=== PATIENT | female | born 1955 | race Caucasian/White ===

== ENCOUNTER 2017-06-21 09:08 | Day surgery (SDC) | payer MEDICAID ==
[~2017-06-21 09:08] MED LIST: Lactated Ringers 1,000 ML IV SCH; Propofol 200 MG/20 ML SDV ONE; Sodium Chloride 0.9% 5 ML Syringe FLUSH PRN
[2017-06-21] MEDS ORDERED: EPINEPHrine 1:10,000 1 MG/10 ML Syringe ONE (09:24)
[2017-06-21] MEDS ORDERED: Propofol 200 MG/20 ML SDV IV ONE (10:17)
[2017-06-21] MEDS ORDERED: Glycopyrrolate 0.2 MG/ML 5 ML MDV IV ONE (10:17)
[2017-06-21] MEDS ORDERED: Succinylcholine 200 MG/10 ML MDV IV ONE (10:17)
[2017-06-21] MEDS ORDERED: Neostigmine Methylsulfate 10 MG/10 ML MDV IV ONE (10:17)
[2017-06-21] MEDS ORDERED: fentaNYL 100 MCG/2 ML SDV IV ONE (10:17)
[2017-06-21] MEDS ORDERED: Rocuronium 50 MG/5 ML Vial IV ONE (10:17)
[2017-06-21] MEDS ORDERED: ceFAZolin 1 GM Vial IV ONE (10:17)
[2017-06-21] MEDS ORDERED: Atropine 0.4 MG/ML SDV IV ONE (10:17)
[2017-06-21 10:23] LABS: CHLORIDE,CL 108 mmol/L (98-115); SODIUM,NA 143 mmol/L (136-145)
--- NOTE | 2017-06-21 12:13 | PCM.OPNOTE ---
- General Post-Op/Procedure Note Date of Surgery/Procedure: 06/21/17 Operative Procedure(s): Colonoscopy Findings: normal colonoscopy. A few diverticula were seen in the sigmoid colon. No evidence of obstruction, polyps, bleeding lesions, AV malformations or angiodysplasia. Pre Op Diagnosis: Hemoccult-positive stools. Post-Op Diagnosis: Same Anesthesia Technique: MAC Primary Surgeon: Richard Gillis Complications: None Condition: Good Free Text/Narrative:: INFORMED CONSENT: Patient is here today for elective colonoscopy. All aspects of this procedure have been discussed with the patient. All possible complications also, including possibility of perforation, infection, pain, bleeding and unknown complications. In the event of perforation patient may need to have abdominal exploration, colon resection, colostomy and even was discussed. Anesthetic complications were handled by anesthesia department. The patient understands fully well. Patient did not have any further questions for me at the end of my interview. The patient wishes for me to proceed. PREOPERATIVE DIAGNOSIS/INDICATIONS: [Hemoccult-positive stools] POSTOPERATIVE DIAGNOSIS: [multiple diverticuli of the sigmoid colon otherwise negative colonoscopy] INSTRUMENT USED: Olympus videocolonoscope. ASA CLASSIFICATION: [2] ANESTHESIA: Continuous EKG, oximetry and intermittent blood pressure and respiratory monitoring were performed throughout the procedure. IV Versed and Fentanyl were administered. PROCEDURE PERFORMED: Colonoscopy POSITIONS OF PATIENT: Left lateral. RECTUM: Normal. SIGMOID COLON: multiple diverticuli were seen without complication.. DESCENDING COLON: Normal. SPLENIC FLEXURE: Normal. TRANSVERSE COLON: Normal. HEPATIC FLEXURE: Normal. ASCENDING COLON: Normal. CECUM: Normal. ILEOCECAL VALVE: Normal. BIOPSY: None. TOLERANCE: Excellent. COMPLICATIONS: None.
[2017-06-21 14:47] VITALS: BP 135/60
== END 2017-06-21 12:48 ==
LOC: KA.SDS 09:08
PROVIDERS: ATTEND Family Medicine
DX: K57.30 Diverticulosis of large intestine without perforation or abscess without bleeding (principal); C34.90 Malignant neoplasm of unspecified part of unspecified bronchus or lung; D50.9 Iron deficiency anemia, unspecified; I11.0 Hypertensive heart disease with heart failure; I50.22 Chronic systolic (congestive) heart failure; I69.359 Hemiplegia and hemiparesis following cerebral infarction affecting unspecified side; K21.9 Gastro-esophageal reflux disease without esophagitis; F32.9 Major depressive disorder, single episode, unspecified; Z79.02 Long term (current) use of antithrombotics/antiplatelets; Z79.82 Long term (current) use of aspirin; Z79.899 Other long term (current) drug therapy; Z88.5 Allergy status to narcotic agent; Z88.8 Allergy status to other drugs, medicaments and biological substances; Z91.041 Radiographic dye allergy status
CPT/HCPCS: 36415; 45378; 80048; 85025; J0330; J0461; J0690; J2704; J2710; J3010; J7120; J3490

== ENCOUNTER 2019-02-06 11:37 | Inpatient (IN) | payer MEDICAID ==
[2019-02-06] MEDS ORDERED: Furosemide 40 MG/4 ML VIAL IVPUSH SCH ×2 (12:45→17:00)
[2019-02-06] MEDS ORDERED: EPINEPHrine 1:10,000 1 MG/10 ML Syringe IVPUSH PRN (13:15)
[2019-02-06] MEDS ORDERED: Lidocaine 2% 100 MG/5 ML Syringe IVPUSH PRN (13:15)
[2019-02-06] MEDS ORDERED: Atropine 0.1 MG/ML 10 ML Syringe IVPUSH PRN (13:15)
[2019-02-06] MEDS ORDERED: Nitroglycerin 0.4 MG Tab.SL SL PRN (13:15)
[2019-02-06] MEDS ORDERED: guaiFENesin 100 MG/5 ML Soln 5 ML UD Cup PO PRN (16:34)
[2019-02-06] MEDS ORDERED: Acetaminophen 325 MG Tab PO PRN (16:34)
[2019-02-06] MEDS ORDERED: Albuterol 0.083% 2.5 MG/3 ML Neb Soln NEB PRN (16:34)
[2019-02-06] MEDS ORDERED: Nystatin Topical Powder 15 GM Bottle TOP PRN (16:34)
[2019-02-06] MEDS ORDERED: Albuterol/Ipratropium 3.0-0.5 MG/3 ML Neb Soln NEB SCH (17:00)
[2019-02-06] MEDS ORDERED: Acetaminophen 325 MG Tab PO SCH (18:00)
[2019-02-06] MEDS ORDERED: Metoprolol Tartrate 25 MG Tab PO SCH (18:00)
[2019-02-06] MEDS ORDERED: Insulin Aspart 100 Units/ML 3 ML Pen SUBCUT SCH (18:00)
[2019-02-06 18:04] VITALS: BP 138/75
[2019-02-06] MEDS ORDERED: Ascorbic Acid 500 MG Tab PO SCH (20:00)
[2019-02-06] MEDS ORDERED: Polyvinyl Alcohol 1.4% Ophth Soln 15 ML Bottle EYEBOTH SCH (20:00)
[2019-02-06] MEDS ORDERED: Non-Formulary Medication 1 Each (Ferrous Gluconate [Ferrous Gluconate] 324 MG) PO SCH (20:00)
--- NOTE | 2019-02-06 20:00 | CR ---
[id number] RAD/RAD Chest PA And Lateral EXAM: FRONTAL AND LATERAL CHEST INDICATION: Shortness of breath. COMPARISON: March 08, 2012. DISCUSSION: Moderate right and small left pleural effusions. Cardiomegaly with mild central vascular congestion. Possible right perihilar infiltrates. Unchanged left apical scarring and masslike opacification. Prior sternotomy. IMPRESSION: 1. Moderate and small left pleural effusions. 2. Cardiomegaly with mild central vascular congestion. 3. Possible right perihilar infiltrates. Andrew Castillo MD 02/06/19 1959 Thank you for allowing us to participate in the care of your patient.
[2019-02-06 20:34] LABS: O2 DELIVERY DEVICE NASAL CANNULA
[2019-02-06 20:36] LABS: BASE EXCESS ARTERIAL 26 mmol/L (-2-3); BICARBONATE,ARTERIAL 50.1 mmol/L (22-26); O2 FLOW RATE 4 L/min; O2 SATURATION ARTERIAL 97 % (95-98)
[2019-02-06 20:38] LABS: PCO2 ARTERIAL 74 mmHG (35-45); PO2 ARTERIAL 95 mmHG (80-105)
[2019-02-06] MEDS ORDERED: OLANZapine 5 MG Tab PO SCH (21:00)
[2019-02-07] MEDS ORDERED: Folic Acid 1 MG Tab PO SCH (09:00)
[2019-02-07] MEDS ORDERED: Non-Formulary Medication 1 Each (Formoterol Fumarate [Perforomist] 2 ML) INH SCH (09:00)
[2019-02-07] MEDS ORDERED: FLUoxetine 10 MG Cap PO SCH (09:00)
[2019-02-07] MEDS ORDERED: Cholecalciferol (Vitamin D3) 1,000 Unit Tab PO SCH (09:00)
[2019-02-07] MEDS ORDERED: Pantoprazole 40 MG Vial IV SCH (09:00)
[2019-02-07] MEDS ORDERED: Aspirin 81 MG Tab.Chew PO SCH (09:00)
[2019-02-07] MEDS ORDERED: Multivitamins with Minerals/Iron/Folic Acid/Lycopene Tab PO SCH (09:00)
[2019-02-07] MEDS ORDERED: Clopidogrel 75 MG Tab PO SCH (09:00)
[2019-02-07] MEDS ORDERED: FLUOXETINE 40 MG PO SCH (09:00)
[2019-02-07] MEDS ORDERED: CIT AC PO SCH (12:00)
[2019-02-07] MEDS ORDERED: POTASSIUM BICARBONATE PO SCH (12:00)
--- NOTE | 2019-02-07 14:35 | DISCH ---
ADMITTING DIAGNOSIS: Right pleural effusion with shortness of breath along with edema and fluid overload secondary to congestive heart failure. DISCHARGE DIAGNOSIS: Aspiration pneumonia to right upper lung along with right pleural effusion and exacerbation of congestive heart failure. BRIEF HISTORY AND ESSENTIAL PHYSICAL FINDINGS: This is a 63-year-old female patient who does resides in the [facility] in [place], [place]. Over the weekend, the patient was short of breath. The on-call provider was called. Her Lasix was increased from 20 mg once daily to 20 mg twice a day. She was also given some DuoNeb treatments. Nursing staff had reported that her oxygen sats would drop down into the 70s when she was on room air. She had difficulty breathing, was short of breath when she was lying down flat. She was brought to the clinic on Wednesday morning for followup after weekend. Chest x-ray at that time had revealed pleural effusion on the right had got much larger from the previous x- ray that was taken about a month ago. 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 She did have a lobectomy at that time to remove the cancer. The patient's brain natriuretic peptide was elevated at 1110. CBC and CMP were unremarkable at that time. Except for sodium elevated at 148. The patient was tachypneic with increased respiratory rate and short of breath on exam. She was admitted to the hospital for right pleural effusion, to diuresis the patient. She was given 40 mg IV Lasix upon admission to the hospital. The patient was eating supper at the hospital when she was noted to cough and sputter. Nursing staff had reported that she had a hard time breathing after she had coughed and choked on some food. Her oxygen saturations had dropped into the 70s. She was put on 6 L high-flow nasal cannula. Her O2 sats did increase after a long coughing spell. Repeat chest x- ray at that time revealed a new right upper lobe perihilar infiltrate per Radiology that was not on the previous x-ray earlier that morning. ABGs were obtained, which showed pH at 7.44, pCO2 at 74, PO2 at 95, bicarb at 50, oxygen saturation was 97%. Base excess was 26. This was done on 4 L nasal cannula. The patient also had troponin that was negative at 0.06 upon admission. CK-MB was also negative at 1.2. SIGNIFICANT LABS XRAYS AND CONSULTATION FINDINGS: The patient's lab work that was obtained in the clinic. Her CBC was unremarkable. Her CMP was unremarkable except for her sodium was slightly elevated at 148. Chest x-ray did reveal a large right pleural effusion along with a left upper lobectomy. IMPRESSION AND PLAN: 1. Large right pleural effusion. The patient has had a thoracentesis in the past, having this drained in the past, has been increasing in size when compared to previous x-ray about a month ago, was much larger. She is more short of breath even with diuresis of IV Lasix. She did receive 2 doses of IV Lasix while in the hospital 40 mg each dose. 2. Aspiration pneumonia. Chest x-ray did reveal a new perihilar right upper lobe infiltrate that was new from previous x-ray earlier this morning. OVERALL PLAN: The patient's respiratory rate had increased. Her respiratory drive had increased. More difficulty to keep her oxygen saturations above 90%. ABGs did show a pCO2 elevated at 74. The patient continued to be tachypnea. Lungs sounds are very coarse throughout lung glez. The patient will be transferred to [facility] in [place] to the ICU. Report was called to Dr. Torres, ornamental ironworking supervisor, at ICU in [place]. She will be transferred tonight per ambulance. The patient's son is aware of transfer. The patient is in agreement of plan of care. She does wish to be a full code and to be intubated if necessary. /[id number]/MODL MTDD
== END 2019-02-06 22:10 | DRG 291 ==
LOC: KA.MS 11:37
PROVIDERS: ADMIT Physician Assistant; ATTEND Family Medicine
DX: I11.0 Hypertensive heart disease with heart failure (principal); I50.23 Acute on chronic systolic (congestive) heart failure; J69.0 Pneumonitis due to inhalation of food and vomit; E87.0 Hyperosmolality and hypernatremia; I69.351 Hemiplegia and hemiparesis following cerebral infarction affecting right dominant side; Z85.118 Personal history of other malignant neoplasm of bronchus and lung; Z91.041 Radiographic dye allergy status; Z88.5 Allergy status to narcotic agent; K21.9 Gastro-esophageal reflux disease without esophagitis; F32.9 Major depressive disorder, single episode, unspecified
CPT/HCPCS: 36600; 71046; 82553; 82803; 84484; A9270-GY; J1940; J7620-GY

== ENCOUNTER 2019-07-04 07:34 | Day surgery (SDC) | payer MEDICAID ==
[~2019-07-04 07:34] MED LIST changes: +Ciprofloxacin 0.3% Ophth Soln 2.5 ML Bottle EYELF SCH; -Propofol 200 MG/20 ML SDV ONE; +Sodium Chloride 0.9% 10 ML Syringe FLUSH PRN; -Sodium Chloride 0.9% 5 ML Syringe FLUSH PRN
[2019-07-04] MEDS: Cyclopentolate 1% Opth Soln 2 ML Bottle EYELF SCH ×3 (07:51→08:18)
[2019-07-04] MEDS: Phenylephrine 10% Ophth Soln 5 ML Bot EYELF SCH ×3 (07:56→08:28)
[2019-07-04] MEDS ORDERED: Albuterol/Ipratropium 3.0-0.5 MG/3 ML Neb Soln NEB SCH (08:45)
[2019-07-04] MEDS ORDERED: Balanced Salt Solution Ophth Irrig 15 ML Bottle EYELF ONE (09:30)
[2019-07-04] MEDS ORDERED: Water For Irrigation,Sterile 1,500 ML Container IRR ONE (09:30)
[2019-07-04] MEDS ORDERED: Balanced Salt Solution Plus Ophth Irrig 500 ML Bottle IOCULAR ONE (09:31)
[2019-07-04] MEDS ORDERED: EPINEPHrine 1 MG/1 ML Amp ONE (09:31)
[2019-07-04] MEDS ORDERED: Carbachol 0.01% Intraocular 1.5 ML Vial EYELF ONE (09:31)
[2019-07-04] MEDS ORDERED: Lidocaine 1% 10 ML MDV INJECT ONE (09:32)
[2019-07-04] MEDS ORDERED: Lidocaine 2% with EPINEPHrine 1:100,000 20 ML MDV INJECT ONE (09:32)
[2019-07-04] MEDS ORDERED: Dexamethasone/Neomycin/Polymyxin B Ophth Oint 3.5 GM Tube EYELF ONE (09:32)
[2019-07-04] MEDS ORDERED: Hyaluronate Sodium 1% 0.85 ML Syringe IOCULAR ONE (09:33)
[2019-07-04] MEDS ORDERED: Tetracaine HCl/PF 0.5% 4 ML Bottle EYEBOTH ONE (09:33)
[2019-07-04 10:36] VITALS: BP 112/56
--- NOTE | 2019-07-04 11:47 | OR ---
DATE OF SURGERY: 07/04/2019 SURGEON: Blayne Krishnan MD PREOPERATIVE DIAGNOSIS: Cataract, left eye. POSTOPERATIVE DIAGNOSIS: Cataract, left eye. OPERATION PERFORMED: Phacoemulsification with posterior chamber lens insertion, left eye. HISTORY: The patient presents at this time with increasing amount of difficulty seeing television and also difficulty seeing to read. The left eye has a vision of 20/50 -2. The left lens has a 2 to 3+ nuclear sclerosis with 2+ cortical change and 1 to 2+ posterior subcapsular change. This eye has a combined cataract and a cataract of aging. FINDINGS: The patient was taken to the operating room where appropriate anesthesia, sedation and monitoring were provided. A retrobulbar block was given on the left side. The eye was massaged and was found to be appropriately soft. The eye and eyelids were then prepped and draped in the usual sterile manner. A lid speculum was placed. A micro sharp blade was used to enter the anterior chamber inside the limbus inferior-temporally. Xylocaine was irrigated into the eye at this site. Healon was irrigated into the eye through this site. Then using a 2.85 mm corneal blade an entry was made into the anterior chamber just inside the limbus temporally. Healon was again irrigated into the eye. Then using a cystitome, the anterior capsulorrhexis was created. The lens nucleus was hydrodissected using a 27 gauge cannula and balanced salt solution. The phacoemulsification unit was introduced through the temporal site and the Wai spatula through the inferior temporal site. In so doing, the lens nucleus was phacoemulsified. The cortical fragments of the lens were removed using the irrigation aspiration unit. The posterior capsule was polished. Healon was irrigated into the eye. The posterior chamber lens was inserted and rotated into position inside the capsular bag. The Healon was irrigated out of the eye. Miostat was irrigated into the eye and the pupil rounded nicely. A single interrupted 10-0 Nylon suture was placed through the temporal corneal incision site. Balanced salt solution was irrigated into the eye. The wound was tested and found to be tight. Maxitrol ointment was placed into the patient's left eye. The eyelids were closed and an eye patch and childers shield were placed. The patient left the operating room in good condition. /[id number]/MODL
== END 2019-07-04 10:45 ==
LOC: KA.SDS 07:34
PROVIDERS: ATTEND Ophthalmology
DX: H25.812 Combined forms of age-related cataract, left eye (principal); I11.0 Hypertensive heart disease with heart failure; I50.22 Chronic systolic (congestive) heart failure; D50.9 Iron deficiency anemia, unspecified; K21.9 Gastro-esophageal reflux disease without esophagitis; E55.9 Vitamin D deficiency, unspecified; I69.354 Hemiplegia and hemiparesis following cerebral infarction affecting left non-dominant side; F32.9 Major depressive disorder, single episode, unspecified; Z79.899 Other long term (current) drug therapy; Z79.82 Long term (current) use of aspirin; Z79.02 Long term (current) use of antithrombotics/antiplatelets; Z91.041 Radiographic dye allergy status
CPT/HCPCS: A9270-GY; J0171; J2001; J7120; J7620-GY; V2632

== ENCOUNTER 2019-07-21 19:35 | Emergency (ER) | payer MEDICAID ==
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
[2019-07-21] MEDS ORDERED: Sodium Chloride 0.9% 10 ML Syringe FLUSH PRN (20:00)
[2019-07-21 20:28] LABS: ANION GAP 15.1 mmol/L (5-15); CHLORIDE,CL 103 mmol/L (98-115); SODIUM,NA 142 mmol/L (136-145)
[2019-07-21] MEDS ORDERED: Ciprofloxacin 500 MG Tab PO ONE (22:53)
[2019-07-21] MEDS ORDERED: metroNIDAZOLE 500 MG Tab PO ONE (22:55)
[2019-07-22 02:52] VITALS: BP 114/50; PULSE 78
== END 2019-07-21 23:20 ==
LOC: KA.ED 19:35
DX: K57.32 Diverticulitis of large intestine without perforation or abscess without bleeding (principal); I10 Essential (primary) hypertension; K21.9 Gastro-esophageal reflux disease without esophagitis; F41.9 Anxiety disorder, unspecified; F32.9 Major depressive disorder, single episode, unspecified; J44.9 Chronic obstructive pulmonary disease, unspecified; Z79.51 Long term (current) use of inhaled steroids; Z88.8 Allergy status to other drugs, medicaments and biological substances; Z88.5 Allergy status to narcotic agent; Z79.82 Long term (current) use of aspirin; Z90.710 Acquired absence of both cervix and uterus; Z79.899 Other long term (current) drug therapy
CPT/HCPCS: 51701; 74022; 74176; 80053; 81001; 82150; 83690; 85025; 99285-25; A9270-GY

== ENCOUNTER 2019-08-01 07:31 | Day surgery (SDC) | payer MEDICAID ==
[~2019-08-01 07:31] MED LIST changes: -Ciprofloxacin 0.3% Ophth Soln 2.5 ML Bottle EYELF SCH; +Gatifloxacin 0.5% Ophth Soln 2.5 ML Bot EYERT SCH
[2019-08-01] MEDS ORDERED: Ciprofloxacin 0.3% Ophth Soln 2.5 ML Bottle EYERT ONE (07:42)
[2019-08-01] MEDS: Cyclopentolate 1% Opth Soln 2 ML Bottle EYERT SCH ×3 (07:48→08:19)
[2019-08-01] MEDS: Phenylephrine 10% Ophth Soln 5 ML Bot EYERT SCH ×3 (07:55→08:24)
[2019-08-01] MEDS ORDERED: Water For Irrigation,Sterile 1,500 ML Container IRR ONE (09:34)
[2019-08-01] MEDS ORDERED: Balanced Salt Solution Ophth Irrig 15 ML Bottle EYERT ONE (09:34)
[2019-08-01] MEDS ORDERED: Carbachol 0.01% Intraocular 1.5 ML Vial EYERT ONE (09:35)
[2019-08-01] MEDS ORDERED: EPINEPHrine 1 MG/1 ML Amp ONE (09:35)
[2019-08-01] MEDS ORDERED: Balanced Salt Solution Plus Ophth Irrig 500 ML Bottle IOCULAR ONE (09:35)
[2019-08-01] MEDS ORDERED: Lidocaine 2% with EPINEPHrine 1:100,000 20 ML MDV INJECT ONE (09:35)
[2019-08-01] MEDS ORDERED: Dexamethasone/Neomycin/Polymyxin B Ophth Oint 3.5 GM Tube EYERT ONE (09:35)
[2019-08-01] MEDS ORDERED: Lidocaine 1% 10 ML MDV INJECT ONE (09:36)
[2019-08-01] MEDS ORDERED: Hyaluronate Sodium 1% 0.85 ML Syringe IOCULAR ONE (09:36)
[2019-08-01] MEDS ORDERED: Tetracaine HCl/PF 0.5% 4 ML Bottle EYEBOTH ONE (09:37)
[2019-08-01 10:03] VITALS: PULSE 62
[2019-08-01 10:27] VITALS: BP 112/55
--- NOTE | 2019-08-01 10:52 | OR ---
DATE OF SURGERY: 08/01/2019 SURGEON: Blayne Krishnan MD PREOPERATIVE DIAGNOSIS: Cataract, right eye. POSTOPERATIVE DIAGNOSIS: Cataract, right eye. OPERATION PERFORMED: Phacoemulsification with posterior chamber lens insertion, right eye. HISTORY: The patient presents at this time with an increasing amount of difficulty seeing print on television. The right eye has a vision of 20/70. The right lens has 2 to 3+ nuclear sclerosis with 2+ cortical change and 1 to 2+ posterior subcapsular change. This eye has a combined cataract and a cataract of aging. FINDINGS: The patient was taken to the operating room where appropriate anesthesia, sedation and monitoring were provided. A retrobulbar block was given on the right side. The eye was massaged and was found to be appropriately soft. The eye and eyelids were then prepped and draped in the usual sterile manner. A lid speculum was placed. A micro sharp blade was used to enter the anterior chamber inside the limbus superior-temporally. Xylocaine was irrigated into the eye at this site. Healon was irrigated into the eye through this site. Then using a 2.85 mm corneal blade an entry was made into the anterior chamber just inside the limbus temporally. Healon was again irrigated into the eye. Then using a cystitome, the anterior capsulorrhexis was created. The lens nucleus was hydrodissected using a 27 gauge cannula and balanced salt solution. The phacoemulsification unit was introduced through the temporal site and the Wai spatula through the superior temporal site. In so doing, the lens nucleus was phacoemulsified. The cortical fragments of the lens were removed using the irrigation aspiration unit. The posterior capsule was polished. Healon was irrigated into the eye. The posterior chamber lens was inserted and rotated into position inside the capsular bag. The Healon was irrigated out of the eye. Miostat was irrigated into the eye and the pupil rounded nicely. A single interrupted 10-0 Nylon suture was placed through the temporal corneal incision site. Balanced salt solution was irrigated into the eye. The wound was tested and found to be tight. Maxitrol ointment was placed into the patient's right eye. The eyelids were closed and an eye patch and childers shield were placed. The patient left the operating room in good condition. /[id number]/MODL
== END 2019-08-01 10:34 ==
LOC: KA.SDS 07:31
PROVIDERS: ATTEND Ophthalmology
DX: H25.811 Combined forms of age-related cataract, right eye (principal); I11.0 Hypertensive heart disease with heart failure; I50.22 Chronic systolic (congestive) heart failure; F33.9 Major depressive disorder, recurrent, unspecified; F41.9 Anxiety disorder, unspecified; K21.9 Gastro-esophageal reflux disease without esophagitis; Z79.899 Other long term (current) drug therapy; Z79.82 Long term (current) use of aspirin; Z79.02 Long term (current) use of antithrombotics/antiplatelets; Z91.041 Radiographic dye allergy status; Z88.5 Allergy status to narcotic agent; Z88.8 Allergy status to other drugs, medicaments and biological substances
CPT/HCPCS: A9270-GY; J0171; J2001; J7120; V2632

== ENCOUNTER 2021-03-26 04:30 | Emergency (ER) | payer MEDICAID ==
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
[2021-03-26] MEDS ORDERED: Sodium Chloride 0.9% 10 ML Syringe FLUSH PRN (05:06)
[2021-03-26] MEDS: Albuterol/Ipratropium 3.0-0.5 MG/3 ML Neb Soln NEB ONE ×2 (05:13→05:55)
[2021-03-26] MEDS: Sodium Chloride 0.9% 1,000 ML IV ONE (05:15)
[2021-03-26 05:50] LABS: ANION GAP 15.1 mmol/L (5-15); CHLORIDE,CL 100 mmol/L (98-107); SODIUM,NA 139 mmol/L (136-145)
[2021-03-26] MEDS: cefTRIAXone 2 GM Vial IVPUSH ONE (05:55)
[2021-03-26] MEDS: Albuterol/Ipratropium 3.0-0.5 MG/3 ML Neb Soln ONE ×2 (06:14→06:15)
[2021-03-26] MEDS: Acetaminophen 500 MG Tab PO ONE (06:34)
[2021-03-26] MEDS: Sodium Chloride 0.9% 1,000 ML IV SCH (06:35)
[2021-03-26] MEDS: Sodium Chloride 0.9% 1,000 ML ONE (06:52)
[2021-03-26 07:32] VITALS: BP 129/64; PULSE 131
--- NOTE | 2021-03-26 08:27 | CT ---
[id number] CT/CT Chest WO IV EXAM: CT Chest WO IV CLINICAL DATA: SHORTNESS OF BREATH COMPARISON: 11/25/2015. FINDINGS: LUNGS: Dense consolidation of the lung apices bilaterally. Additionally there are areas of airspace consolidation within the right lower lobe. Volume loss with apparent postsurgical changes at the left lung apex. 2.3 cm nodule within the right middle lobe (series 3 image 48). No endobronchial lesions. HEART AND GREAT VESSELS: The heart is enlarged. Coronary artery disease. Atherosclerotic calcifications of the aorta and its branches. MEDIASTINUM AND LYMPHATICS: No mediastinal or hilar lymphadenopathy. Central venous catheter with tip terminating at the superior vena cava. UPPER ABDOMINAL ORGANS: Nonobstructing left renal calculi. Partially visualized nodular density adjacent to the right hepatic lobe. BONES: Scattered changes of spondylosis in the spine. Minimally displaced fractures of the right eighth, ninth and 10th ribs.. IMPRESSION: 1. 2.3 cm spiculated right middle lobe nodule concerning for neoplastic process. Further evaluation with PET CT could be considered if indicated. 2. Dense consolidation at the lung apices bilaterally. Findings could be infectious/inflammatory in nature. Neoplasm is not excluded. 3. Minimally displaced fractures of the right eighth, ninth and 10th ribs. Matt Shen DO 03/26/21 0826 Thank you for allowing us to participate in the care of your patient.
--- NOTE | 2021-03-26 08:31 | CR ---
[id number] RAD/RAD Chest PA or AP 1V EXAM: RAD Chest PA or AP 1V INDICATION: SHORTNESS OF BREATH COMPARISON: July 21, 2019. DISCUSSION: Median sternotomy wires. The cardiomediastinal silhouette is stable in size. Right chest wall Mediport with tip overlying the upper portion the superior vena cava. Persistent opacification of the left lung apex. Masslike density overlying the right lung apex is new when compared to prior. Pulmonary hyperinflation. Fractures of ribs 8, 9 and 10 on the right. IMPRESSION: As above. Matt Shen DO 03/26/21 0829 Thank you for allowing us to participate in the care of your patient.
== END 2021-03-26 07:49 ==
LOC: KA.ED 04:30
DX: J18.9 Pneumonia, unspecified organism (principal); C34.90 Malignant neoplasm of unspecified part of unspecified bronchus or lung; R79.89 Other specified abnormal findings of blood chemistry; I11.0 Hypertensive heart disease with heart failure; I50.9 Heart failure, unspecified; J44.9 Chronic obstructive pulmonary disease, unspecified; K21.9 Gastro-esophageal reflux disease without esophagitis; Z79.82 Long term (current) use of aspirin; Z79.02 Long term (current) use of antithrombotics/antiplatelets; Z88.5 Allergy status to narcotic agent; Z91.041 Radiographic dye allergy status; Z91.09 Other allergy status, other than to drugs and biological substances; Z20.822 Contact with and (suspected) exposure to COVID-19
CPT/HCPCS: 71045; 71250; 80053; 82550; 82553; 83605; 83880; 84484; 85025; 85379; 85610; 85730; 93005; 94640; 96374; 99284; 99285-25; A9270-GY; J0696; J7030; J7620-GY; U0002

== ENCOUNTER 2021-04-10 19:04 | Inpatient (IN) | payer MEDICAID ==
[2021-04-10] MEDS ORDERED: Albuterol/Ipratropium 3.0-0.5 MG/3 ML Neb Soln NEB ONE ×2 (19:08→19:58)
[2021-04-10] MEDS ORDERED: Sodium Chloride 0.9% 1,000 ML IV ONE (19:08)
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
--- NOTE | 2021-04-10 19:34 | CR ---
[id number] RAD/RAD Chest Portable EXAM: RAD Chest Portable INDICATION: SOB COMPARISON: CT from March 26, 2021. DISCUSSION/IMPRESSION: Chronic opacification in both lung apices, similar to the prior examination. New area of opacification the left lung base not seen previously. Finding is nonspecific could represent pneumonia or atelectasis. 24 mm nodular opacity in the right midlung. This correlates with findings on recent CT. Cardiomediastinal silhouette is unchanged in size and contour compared to the prior examination. Chemo Hdez MD 04/10/21 193 Thank you for allowing us to participate in the care of your patient.
[2021-04-10] MEDS ORDERED: Cefepime 1 GM Vial IVPUSH ONE (19:38)
[2021-04-10 20:02] LABS: ANION GAP 13.3 mmol/L (5-15); CHLORIDE,CL 103 mmol/L (98-107); SODIUM,NA 143 mmol/L (136-145)
[2021-04-10] MEDS ORDERED: Nystatin Topical Powder 15 GM Bottle TOP PRN (21:46)
[2021-04-11] MEDS ORDERED: Cefepime 2 GM in Sodium Chloride 0.9% 50 ML IV SCH (05:00)
[2021-04-11] MEDS: Albuterol 0.083% 2.5 MG/3 ML Neb Soln NEB SCH ×2 (06:20→07:03)
[2021-04-11] MEDS ORDERED: Ipratropium 0.02% 0.5 MG/2.5 ML Neb Soln INH SCH (07:00)
[2021-04-11] MEDS ORDERED: Acetaminophen 325 MG Tab PO PRN (07:31)
[2021-04-11] MEDS: Pantoprazole 40 MG Tab.CR PO SCH (07:42)
[2021-04-11] MEDS: Megestrol Susp 40 MG/ML 10 ML UD Cup PO SCH (08:11)
[2021-04-11] MEDS: Acetaminophen 325 MG Tab PO SCH ×3 (08:11→20:41)
[2021-04-11] MEDS: predniSONE 20 MG Tab PO SCH (08:12)
[2021-04-11] MEDS: Ascorbic Acid 500 MG Tab PO SCH ×3 (08:12→20:41)
[2021-04-11] MEDS: Furosemide 40 MG Tab PO SCH (08:12)
[2021-04-11] MEDS: Cholecalciferol (Vitamin D3) 25 MCG Tab PO SCH (08:12)
[2021-04-11] MEDS: Metoprolol Succinate 25 MG Tab.ER PO SCH (08:13)
[2021-04-11] MEDS: Folic Acid 1 MG Tab PO SCH (08:13)
[2021-04-11] MEDS: Aspirin 81 MG Tab.Chew PO SCH (08:13)
[2021-04-11] MEDS: Clopidogrel 75 MG Tab PO SCH (08:13)
[2021-04-11 08:40] LABS: ANION GAP 15.1 mmol/L (5-15); CHLORIDE,CL 104 mmol/L (98-107); SODIUM,NA 144 mmol/L (136-145)
[2021-04-11] MEDS: Sodium Chloride 0.9% 100 ML IV SCH ×2 (09:00→13:11)
[2021-04-11] MEDS: Multivitamins with Minerals/Iron/Folic Acid/Lycopene Tab PO SCH (09:02)
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
[2021-04-11] MEDS ORDERED: Carboxymethylcellulose Sodium 0.5% Ophth Soln 15 ML Bottle EYEBOTH PRN (09:58)
[2021-04-11] MEDS: [UNRECOGNIZED DRUG - REMARK] PO SCH ×2 (10:22→20:42)
[2021-04-11] MEDS: FLUoxetine 10 MG Cap PO SCH (12:06)
[2021-04-11] MEDS: Albuterol/Ipratropium 3.0-0.5 MG/3 ML Neb Soln NEB SCH ×3 (12:37→23:15)
[2021-04-11] MEDS: Cefepime 2 GM in Sodium Chloride 0.9% 50 ML IV SCH ×2 (13:12→20:29)
[2021-04-11] MEDS ORDERED: Magnesium Hydroxide 400 MG/5 ML Susp 30 ML Cup PO PRN (20:39)
[2021-04-11] MEDS: traZODone 50 MG Tab PO SCH (20:41)
[2021-04-11] MEDS: Ferrous Sulfate 325 MG Tab PO SCH (20:41)
[2021-04-11] MEDS: LETROZOLE 2.5 MG PO SCH (20:43)
[2021-04-11] MEDS: guaiFENesin 100 MG/5 ML Soln 5 ML UD Cup PO PRN (21:02)
[2021-04-12] MEDS: Albuterol/Ipratropium 3.0-0.5 MG/3 ML Neb Soln NEB SCH ×5 (02:30→22:54)
[2021-04-12] MEDS ORDERED: Albuterol/Ipratropium 3.0-0.5 MG/3 ML Neb Soln NEB PRN (02:52)
[2021-04-12] MEDS ORDERED: methylPREDNISolone Sodium Succinate 125 MG/2 ML SDV IVPUSH ONE (02:53)
[2021-04-12] MEDS: Cefepime 2 GM in Sodium Chloride 0.9% 50 ML IV SCH ×3 (04:56→20:03)
[2021-04-12] MEDS: Sodium Chloride 0.9% 100 ML IV SCH ×3 (04:56→20:56)
[2021-04-12] MEDS: Pantoprazole 40 MG Tab.CR PO SCH (07:45)
[2021-04-12] MEDS: Furosemide 40 MG Tab PO SCH (08:16)
[2021-04-12] MEDS: Aspirin 81 MG Tab.Chew PO SCH (08:16)
[2021-04-12] MEDS: Multivitamins with Minerals/Iron/Folic Acid/Lycopene Tab PO SCH (08:16)
[2021-04-12] MEDS: Ascorbic Acid 500 MG Tab PO SCH ×3 (08:16→20:12)
[2021-04-12] MEDS: Folic Acid 1 MG Tab PO SCH (08:16)
[2021-04-12] MEDS: Cholecalciferol (Vitamin D3) 25 MCG Tab PO SCH (08:16)
[2021-04-12] MEDS: FLUoxetine 10 MG Cap PO SCH (08:16)
[2021-04-12] MEDS: Metoprolol Succinate 25 MG Tab.ER PO SCH (08:17)
[2021-04-12] MEDS: Ferrous Sulfate 325 MG Tab PO SCH ×2 (08:17→20:12)
[2021-04-12] MEDS: Clopidogrel 75 MG Tab PO SCH (08:17)
[2021-04-12] MEDS: predniSONE 20 MG Tab PO SCH (08:17)
[2021-04-12] MEDS: [UNRECOGNIZED DRUG - REMARK] PO SCH ×2 (08:17→20:12)
[2021-04-12] MEDS: Acetaminophen 325 MG Tab PO SCH ×3 (08:18→20:11)
[2021-04-12] MEDS: Megestrol Susp 40 MG/ML 10 ML UD Cup PO SCH (08:19)
[2021-04-12 08:51] LABS: ANION GAP 12.8 mmol/L (5-15); CHLORIDE,CL 104 mmol/L (98-107); SODIUM,NA 143 mmol/L (136-145)
--- NOTE | 2021-04-12 10:20 | PCM.PN ---
- General Info Date of Service: 04/12/21 Functional Status: Reports: Pain Controlled, Tolerating Diet, Urinating. Denies: New Symptoms - Review of Systems General: Denies: Fever Pulmonary: Denies: Cough, Sputum Cardiovascular: Denies: Chest Pain, Orthopnea, PND Gastrointestinal: Denies: Abdominal Pain, Diarrhea, Nausea Genitourinary: Reports: No Symptoms Skin: Reports: No Symptoms, Pallor Neurological: Reports: Pre-Existing Deficit Psychiatric: Denies: Confusion - Patient Data Vitals - Most Recent: Last Vital Signs Temp 97.6 F 04/12/21 06:34 Pulse 98 04/12/21 08:17 Resp 24 H 04/12/21 06:34 BP 122/58 L 04/12/21 08:17 Pulse Ox 95 04/12/21 06:34 Weight - Most Recent: 159 lb 8 oz I&O - Last 24 Hours: Intake & Output 04/11/21 04/12/21 04/12/21 22:59 06:59 14:59 Intake Total 0 535 Balance 0 535 Lab Results Last 24 Hours: Laboratory Results - last 24 hr 04/10/21 04/12/21 04/12/21 Range/Units 19:30 07:25 07:25 WBC 19.19 H (5.00-10.00) 10^3/uL RBC 3.59 L (3.80-5.50) 10^6/uL Hgb 9.7 L (12.0-16.0) g/dL Hct 33.4 L (37.0-47.0) % MCV 93.0 H (82.0-92.0) fL MCH 27.0 (27.0-31.0) pg MCHC 29.0 L (32.0-36.0) g/dL RDW 16.7 H (11.5-14.5) % Plt Count 370 (150-400) 10^3/uL MPV 10.3 (7.4-10.4) fL Add Manual Diff Yes Neutrophils % (Manual) 98 H (50-70) % Lymphocytes % (Manual) 1 L (20-40) % Atypical Lymphs % 1 Platelet Estimate Increased Hypochromasia Rare Sodium 143 (136-145) mmol/L Potassium 4.5 (3.5-5.1) mmol/L Chloride 104 (98-107) mmol/L Carbon Dioxide 30.7 (21.0-32.0) mmol/L Anion Gap 12.8 (5-15) mmol/L BUN 13 (7-18) mg/dL Creatinine 0.73 (0.51-1.17) mg/dL Est Cr Clr Drug Dosing 66.35 mL/min Estimated GFR (MDRD) > 60 mL/min Glucose 179 H (70-140) mg/dL Calcium 8.4 L (8.7-10.3) mg/dL Procalcitonin <0.05 ng/mL Riaz Results Last 24 Hours: Microbiology 04/10/21 20:25 Aerobic Blood Culture - Preliminary Blood - Arm, Right NO GROWTH AFTER 1 DAY Anaerobic Blood Culture - Preliminary NO GROWTH AFTER 1 DAY Med Orders - Current: Current Medications Acetaminophen (Acetaminophen 325 Mg Tab) 650 mg PO TID [facility] Last Admin: 04/12/21 08:18 Dose: 650 mg Documented by: Acetaminophen (Acetaminophen 325 Mg Tab) 650 mg PO Q4H PRN PRN Reason: Pain (moderate 4-6) Albuterol (Albuterol 0.083% 2.5 Mg/3 Ml Neb Soln) 2.5 mg NEB BIDRT [facility] Last Admin: 04/11/21 07:03 Dose: Not Given Documented by: Albuterol/Ipratropium (Albuterol/Ipratropium 3.0-0.5 Mg/3 Ml Neb Soln) 3 ml NEB Q6HRRT [facility] Last Admin: 04/12/21 05:04 Dose: 3 ml Documented by: Albuterol/Ipratropium (Albuterol/Ipratropium 3.0-0.5 Mg/3 Ml Neb Soln) 3 ml NEB Q2H PRN PRN Reason: Shortness of Breath Artificial Tears (Carboxymethylcellulose Sodium 0.5% Ophth Soln 15 Ml Bottle) 0 ml EYEBOTH QID PRN PRN Reason: Dry Eyes Ascorbic Acid (Ascorbic Acid 500 Mg Tab) 500 mg PO TID [facility] Last Admin: 04/12/21 08:16 Dose: 500 mg Documented by: Aspirin (Aspirin 81 Mg Tab.Chew) 81 mg PO DAILY [facility] Last Admin: 04/12/21 08:16 Dose: 81 mg Documented by: Cholecalciferol (Cholecalciferol (Vitamin D3) 25 Mcg Tab) 50 mcg PO DAILY [facility] Last Admin: 04/12/21 08:16 Dose: 50 mcg Documented by: Clopidogrel Bisulfate (Clopidogrel 75 Mg Tab) 75 mg PO DAILY [facility] Last Admin: 04/12/21 08:17 Dose: 75 mg Documented by: Ferrous Sulfate (Ferrous Sulfate 325 Mg Tab) 325 mg PO BID [facility] Last Admin: 04/12/21 08:17 Dose: 325 mg Documented by: Fluoxetine HCl (Fluoxetine 10 Mg Cap) 60 mg PO DAILY [facility] Last Admin: 04/12/21 08:16 Dose: 60 mg Documented by: Folic Acid (Folic Acid 1 Mg Tab) 1 mg PO DAILY [facility] Last Admin: 04/12/21 08:16 Dose: 1 mg Documented by: Formoterol Fumarate (Formoterol 20 Mcg/2 Ml Neb) 20 mcg INH BIDRT [facility] Last Admin: 04/11/21 10:00 Dose: 20 mcg Documented by: Furosemide (Furosemide 40 Mg Tab) 40 mg PO DAILY [facility] Last Admin: 04/12/21 08:16 Dose: 40 mg Documented by: Guaifenesin (Guaifenesin 100 Mg/5 Ml Soln 5 Ml Ud Cup) 100 mg PO Q4HR PRN PRN Reason: Cough Last Admin: 04/11/21 21:02 Dose: 100 mg Documented by: Vancomycin HCl 1 gm/ Sodium (Chloride) 250 mls @ 166.667 mls/hr IV Q12H [facility] Last Admin: 04/12/21 09:07 Dose: 166.667 mls/hr Documented by: Sodium Chloride (Normal Saline) 100 mls @ 125 mls/hr IV ASDIRECTED [facility] Last Admin: 04/12/21 09:06 Dose: 125 mls/hr Documented by: Cefepime HCl 2 gm/ Sodium (Chloride) 50 mls @ 100 mls/hr IV Q8H [facility] Last Admin: 04/12/21 04:56 Dose: 100 mls/hr Documented by: Ipratropium [place] (Ipratropium 0.02% 0.5 Mg/2.5 Ml Neb Soln) 0.5 mg INH TIDRT [facility] Last Admin: 04/11/21 06:20 Dose: 0.5 mg Documented by: Magnesium Hydroxide (Magnesium Hydroxide 400 Mg/5 Ml Susp 30 Ml Cup) 30 ml PO DAILY PRN PRN Reason: Constipation Last Admin: 04/11/21 22:03 Dose: 30 ml Documented by: Megestrol Acetate (Megestrol Susp 40 Mg/Ml 10 Ml Ud Cup) 400 mg PO DAILY [facility] Last Admin: 04/12/21 08:19 Dose: 400 mg Documented by: Metoprolol Succinate (Metoprolol Succinate 25 Mg Tab.Er) 25 mg PO DAILY [facility] Last Admin: 04/12/21 08:17 Dose: 25 mg Documented by: Multivitamins/Minerals (Multivitamins With Minerals/Iron/Folic Acid/Lycopene Tab) 1 tab PO DAILY [facility] Last Admin: 04/12/21 08:16 Dose: 1 tab Documented by: Letrozole 2.5 Mg (Tablet - Nonform) 2.5 mg PO BEDTIME [facility] Last Admin: 04/11/21 20:43 Dose: 2.5 mg Documented by: Sennosides [Senna] 8 .6 Mg Tablet - Non Form 8.6 mg PO BID [facility] Last Admin: 04/12/21 08:17 Dose: 8.6 mg Documented by: Nystatin (Nystatin Topical Powder 15 Gm Bottle) 0 gm TOP BID PRN PRN Reason: rashes Pantoprazole Sodium (Pantoprazole 40 Mg Tab.Cr) 40 mg PO ACBREAKFAST [facility] Last Admin: 04/12/21 07:45 Dose: 40 mg Documented by: Potassium Chloride (Potassium Chloride 20 Meq Tab.Er) 10 meq PO DAILY@1200 [facility] Prednisone (Prednisone 20 Mg Tab) 20 mg PO DAILY [facility] Stop: 04/14/21 09:01 Last Admin: 04/12/21 08:17 Dose: 20 mg Documented by: Prednisone (Prednisone 10 Mg Tab) 10 mg PO DAILY [facility] Stop: 04/19/21 09:01 Trazodone HCl (Trazodone 50 Mg Tab) 50 mg PO BEDTIME [facility] Last Admin: 04/11/21 20:41 Dose: 50 mg Documented by: Vancomycin HCl (Pharmacy To Dose - Vancomycin) 1 dose .XX ASDIRECTED [facility] Discontinued Medications Albuterol/Ipratropium (Albuterol/Ipratropium 3.0-0.5 Mg/3 Ml Neb Soln) 3 ml NEB ONETIME ONE Stop: 04/10/21 19:09 Last Admin: 04/10/21 19:34 Dose: 3 ml Documented by: Albuterol/Ipratropium (Albuterol/Ipratropium 3.0-0.5 Mg/3 Ml Neb Soln) 3 ml NEB ONETIME ONE Stop: 04/10/21 19:59 Last Admin: 04/10/21 20:06 Dose: 3 ml Documented by: Cefepime HCl (Cefepime 1 Gm Vial) 1 gm IVPUSH ONETIME ONE Stop: 04/10/21 19:39 Last Admin: 04/10/21 20:10 Dose: 1 gm Documented by: Sodium Chloride (Normal Saline) 1,000 mls @ 999 mls/hr IV .BOLUS ONE Stop: 04/10/21 20:08 Last Admin: 04/10/21 19:34 Dose: 999 mls/hr Documented by: Vancomycin HCl 1 gm/ Sodium (Chloride) 250 mls @ 167 mls/hr IV ONETIME ONE Stop: 04/10/21 22:21 Last Admin: 04/10/21 21:07 Dose: 167 mls/hr Documented by: Cefepime HCl 2 gm/ Sodium (Chloride) 50 mls @ 100 mls/hr IV Q8HR [facility] Last Admin: 04/11/21 04:36 Dose: 100 mls/hr Documented by: Methylprednisolone Sodium Succinate (Methylprednisolone Sodium Succinate 125 Mg/2 Ml Sdv) 40 mg IVPUSH ONETIME ONE Stop: 04/12/21 02:54 Last Admin: 04/12/21 03:05 Dose: 40 mg Documented by: - Exam General: Alert, Oriented Neck: Supple Lungs: Rhonchi Cardiovascular: Regular Rate, Regular Rhythm GI/Abdominal Exam: Normal Bowel Sounds, Soft Back Exam: No: CVA Tenderness (L), CVA Tenderness (R) Extremities: No Pedal Edema Neurological: Normal Speech, Normal Tone, Other (Left-sided hemiplagia) - Patient Data Lab Results Last 24 hrs: Laboratory Results - last 24 hr 04/10/21 04/12/21 04/12/21 Range/Units 19:30 07:25 07:25 WBC 19.19 H (5.00-10.00) 10^3/uL RBC 3.59 L (3.80-5.50) 10^6/uL Hgb 9.7 L (12.0-16.0) g/dL Hct 33.4 L (37.0-47.0) % MCV 93.0 H (82.0-92.0) fL MCH 27.0 (27.0-31.0) pg MCHC 29.0 L (32.0-36.0) g/dL RDW 16.7 H (11.5-14.5) % Plt Count 370 (150-400) 10^3/uL MPV 10.3 (7.4-10.4) fL Add Manual Diff Yes Neutrophils % (Manual) 98 H (50-70) % Lymphocytes % (Manual) 1 L (20-40) % Atypical Lymphs % 1 Platelet Estimate Increased Hypochromasia Rare Sodium 143 (136-145) mmol/L Potassium 4.5 (3.5-5.1) mmol/L Chloride 104 (98-107) mmol/L Carbon Dioxide 30.7 (21.0-32.0) mmol/L Anion Gap 12.8 (5-15) mmol/L BUN 13 (7-18) mg/dL Creatinine 0.73 (0.51-1.17) mg/dL Est Cr Clr Drug Dosing 66.35 mL/min Estimated GFR (MDRD) > 60 mL/min Glucose 179 H (70-140) mg/dL Calcium 8.4 L (8.7-10.3) mg/dL Procalcitonin <0.05 ng/mL Result Diagrams: 04/12/21 07:25 04/12/21 07:25 Riaz Results Last 24 hrs: Microbiology 04/10/21 20:25 Aerobic Blood Culture - Preliminary Blood - Arm, Right NO GROWTH AFTER 1 DAY Anaerobic Blood Culture - Preliminary NO GROWTH AFTER 1 DAY Sepsis Event Note - Evaluation Sepsis Screening Result: Sepsis Risk - Focused Exam Vital Signs: Vital Signs Temp Pulse Pulse Resp BP BP Pulse Ox 04/12/21 08:17 98 122/58 L 04/12/21 06:34 97.6 F 98 24 H 122/50 L 95 04/12/21 05:15 93 04/12/21 02:46 96.4 F L 119 H 28 H 165/87 H 91 L 04/12/21 02:40 118 H 04/11/21 23:25 95 04/11/21 22:36 96.3 F L 92 24 H 126/48 L 96 Pulse Ox Pulse Ox 04/12/21 08:17 04/12/21 06:34 04/12/21 05:15 100 04/12/21 02:46 04/12/21 02:40 90 L 04/11/21 23:25 97 04/11/21 22:36 - Problem List Review Problem List Initiated/Reviewed/Updated: Yes - My Orders Last 24 Hours: My Active Orders 04/11/21 11:32 RT Aerosol Therapy [RC] ASDIRECTED 04/11/21 11:40 LEGIONELLA ANTIGEN [MREF] Urgent STREP PNEUMONIAE ANTIGEN [MREF] Urgent 04/11/21 12:30 Albuterol/Ipratropium [DuoNeb 3.0-0.5 MG/3 ML] 3 ml NEB Q6HRRT 04/11/21 Dinner ADA Diabetic [[employer] Diet] [DIET] 04/11/21 20:39 Magnesium Hydroxide [Milk of Magnesia] 30 ml PO DAILY PRN 04/12/21 02:52 Albuterol/Ipratropium [DuoNeb 3.0-0.5 MG/3 ML] 3 ml NEB Q2H PRN 04/12/21 07:25 CBC WITH AUTO DIFF [HEME] AM MANUAL DIFFERENTIAL QA/NC [HEME] Routine - Plan Plan:: History of present illness Ms Coronado is a 65-year-old female that was admitted into INPT status with working diagnosis of pneumonia. Patient is a resident of [facility] and presented to the ED via EMS with sudden onset of SOB. She was in [place] day of admission and received Keytruda infusion for treatment of her small cell lung cancer and had been feeling at her baseline prior to the infusion however has had a persistent productive cough. Patient was recently hospitalized~ 2 weeks ago bilateral pneumonia thought to be aspiration component. She has history of chronic respiratory failure and is on home oxygen 4 to 5 L as baseline. Smoking status: Former Smoker Packs/day: 0.50 Types: Cigarettes Quit date: 06/08/2013 years since quittin.8 smokeless tobacco: Never Used ED pertinent findings/work-up Vital signs: BP 104/56, HR 105, temperature 97, MAP 72, pox 95% with 10 L X-ray Labs, WBC, 17.4, 85% neutrophils, D-dimer 668 (H), sodium potassium normal, lactate 1.9, BUNcreatinine; 14/0.79, BNP 222, negative troponin, albumin 2.62 --Recent/previous admssion CT neg for PE Hospital course 04/12/2021; was notified approximately 0300 this morning due to coarse wheezing mild shortness of breath, nurses desired earlier duo nebs order given continue every 6 duo nebs however can have as needed every 2 hours--felt much better after DuoNeb with less wheezing less shortness of breath. Solu-Medrol 40 mg IV push x1. This morning the patient states she feels much better with no more shortness of breath. Primary hospital problems Pneumonia in the setting of lung cancer, Risk for MDR COPD, recent steroids, nebulizers Chronic respiratory failure, diuretics, p.o. beta-blockers Dysphagia, recent video study demonstrated no signs of aspiration with thin consistency however there was penetration quite deeply with mixed consistencies, patient has been undergoing speech therapy Chronic conditions Lung CA, non-small cell, RUL, DX 2018, contributory HFpEF, systolic, chronic, ECHO EF 55% with pulmonary artery systolic pressure of 52 and moderate PAH CAD, ASA, Plavix, beta-skye Hypertension, Lopressor VANDANA GERD with hx of esophageal stenosis requiring frequent dilation History of brain aneurysm, subarachnoid hemorrhage, hemiplegia, ischemic stroke, 2010 Breast CA, right sided ductal carcinoma, mastectomy 2019, remission Osteoporosis, Depression Disposition/overall plan --Patient meets ongoing inpatient qualification due to IV antibiotics, oxygen needs above baseline --Monitor oxygen status carefully, low threshold for BiPAP support given history --HOLD Performist, change nebulizers with DuoNeb's q6hrs
[2021-04-12] MEDS: Potassium Chloride 20 MEQ Tab.ER PO SCH (11:11)
[2021-04-12] MEDS: traZODone 50 MG Tab PO SCH (20:12)
[2021-04-12] MEDS: LETROZOLE 2.5 MG PO SCH (20:14)
[2021-04-12] MEDS: guaiFENesin 100 MG/5 ML Soln 5 ML UD Cup PO PRN (21:48)
[2021-04-13] MEDS: Cefepime 2 GM in Sodium Chloride 0.9% 50 ML IV SCH (05:58)
[2021-04-13] MEDS: Albuterol/Ipratropium 3.0-0.5 MG/3 ML Neb Soln NEB SCH ×2 (06:01→10:49)
[2021-04-13] MEDS: Pantoprazole 40 MG Tab.CR PO SCH ×2 (06:05→06:31)
[2021-04-13] MEDS: Megestrol Susp 40 MG/ML 10 ML UD Cup PO SCH (08:49)
[2021-04-13] MEDS: Multivitamins with Minerals/Iron/Folic Acid/Lycopene Tab PO SCH (08:49)
[2021-04-13] MEDS: Ferrous Sulfate 325 MG Tab PO SCH (08:49)
[2021-04-13] MEDS: Clopidogrel 75 MG Tab PO SCH (08:49)
[2021-04-13] MEDS: FLUoxetine 10 MG Cap PO SCH (08:49)
[2021-04-13] MEDS: Acetaminophen 325 MG Tab PO SCH (08:50)
[2021-04-13] MEDS: Cholecalciferol (Vitamin D3) 25 MCG Tab PO SCH (08:50)
[2021-04-13] MEDS: Metoprolol Succinate 25 MG Tab.ER PO SCH (08:50)
[2021-04-13] MEDS: predniSONE 20 MG Tab PO SCH (08:51)
[2021-04-13] MEDS: Furosemide 40 MG Tab PO SCH (08:51)
[2021-04-13] MEDS: Aspirin 81 MG Tab.Chew PO SCH (08:51)
[2021-04-13] MEDS: Ascorbic Acid 500 MG Tab PO SCH (08:51)
[2021-04-13] MEDS: Folic Acid 1 MG Tab PO SCH (08:51)
[2021-04-13] MEDS: [UNRECOGNIZED DRUG - REMARK] PO SCH (08:52)
--- NOTE | 2021-04-13 09:22 | PCM.PN ---
- General Info Date of Service: 04/13/21 - Patient Data Vitals - Most Recent: Last Vital Signs Temp 97.9 F 04/13/21 06:10 Pulse 98 04/13/21 08:50 Resp 24 H 04/13/21 06:10 BP 111/59 L 04/13/21 08:50 Pulse Ox 96 04/13/21 06:15 Weight - Most Recent: 159 lb 9 oz I&O - Last 24 Hours: Intake & Output 04/12/21 04/13/21 04/13/21 22:59 06:59 14:59 Intake Total 350 475 Balance 350 475 Lab Results Last 24 Hours: Laboratory Results - last 24 hr 04/13/21 Range/Units 08:30 Vancomycin Trough 24.8 (18.0-26.0) ug/mL Riaz Results Last 24 Hours: Microbiology 04/10/21 20:25 Aerobic Blood Culture - Preliminary Blood - Arm, Right NO GROWTH AFTER 2 DAYS Anaerobic Blood Culture - Preliminary NO GROWTH AFTER 2 DAYS Med Orders - Current: Current Medications Acetaminophen (Acetaminophen 325 Mg Tab) 650 mg PO TID [facility] Last Admin: 04/13/21 08:50 Dose: 650 mg Documented by: Acetaminophen (Acetaminophen 325 Mg Tab) 650 mg PO Q4H PRN PRN Reason: Pain (moderate 4-6) Albuterol (Albuterol 0.083% 2.5 Mg/3 Ml Neb Soln) 2.5 mg NEB BIDRT [facility] Last Admin: 04/11/21 07:03 Dose: Not Given Documented by: Albuterol/Ipratropium (Albuterol/Ipratropium 3.0-0.5 Mg/3 Ml Neb Soln) 3 ml NEB Q6HRRT [facility] Last Admin: 04/13/21 06:01 Dose: 3 ml Documented by: Albuterol/Ipratropium (Albuterol/Ipratropium 3.0-0.5 Mg/3 Ml Neb Soln) 3 ml NEB Q2H PRN PRN Reason: Shortness of Breath Artificial Tears (Carboxymethylcellulose Sodium 0.5% Ophth Soln 15 Ml Bottle) 0 ml EYEBOTH QID PRN PRN Reason: Dry Eyes Ascorbic Acid (Ascorbic Acid 500 Mg Tab) 500 mg PO TID [facility] Last Admin: 04/13/21 08:51 Dose: 500 mg Documented by: Aspirin (Aspirin 81 Mg Tab.Chew) 81 mg PO DAILY [facility] Last Admin: 04/13/21 08:51 Dose: 81 mg Documented by: Cholecalciferol (Cholecalciferol (Vitamin D3) 25 Mcg Tab) 50 mcg PO DAILY [facility] Last Admin: 04/13/21 08:50 Dose: 50 mcg Documented by: Clopidogrel Bisulfate (Clopidogrel 75 Mg Tab) 75 mg PO DAILY [facility] Last Admin: 04/13/21 08:49 Dose: 75 mg Documented by: Ferrous Sulfate (Ferrous Sulfate 325 Mg Tab) 325 mg PO BID [facility] Last Admin: 04/13/21 08:49 Dose: 325 mg Documented by: Fluoxetine HCl (Fluoxetine 10 Mg Cap) 60 mg PO DAILY [facility] Last Admin: 04/13/21 08:49 Dose: 60 mg Documented by: Folic Acid (Folic Acid 1 Mg Tab) 1 mg PO DAILY [facility] Last Admin: 04/13/21 08:51 Dose: 1 mg Documented by: Formoterol Fumarate (Formoterol 20 Mcg/2 Ml Neb) 20 mcg INH BIDRT [facility] Last Admin: 04/11/21 10:00 Dose: 20 mcg Documented by: Furosemide (Furosemide 40 Mg Tab) 40 mg PO DAILY [facility] Last Admin: 04/13/21 08:51 Dose: 40 mg Documented by: Guaifenesin (Guaifenesin 100 Mg/5 Ml Soln 5 Ml Ud Cup) 100 mg PO Q4HR PRN PRN Reason: Cough Last Admin: 04/12/21 21:48 Dose: 100 mg Documented by: Vancomycin HCl 1 gm/ Sodium (Chloride) 250 mls @ 166.667 mls/hr IV Q12H [facility] Last Admin: 04/12/21 20:57 Dose: 166.667 mls/hr Documented by: Sodium Chloride (Normal Saline) 100 mls @ 125 mls/hr IV ASDIRECTED [facility] Last Admin: 04/12/21 20:56 Dose: 125 mls/hr Documented by: Cefepime HCl 2 gm/ Sodium (Chloride) 50 mls @ 100 mls/hr IV Q8H [facility] Last Admin: 04/13/21 05:58 Dose: 100 mls/hr Documented by: Ipratropium [place] (Ipratropium 0.02% 0.5 Mg/2.5 Ml Neb Soln) 0.5 mg INH TIDRT [facility] Last Admin: 04/11/21 06:20 Dose: 0.5 mg Documented by: Magnesium Hydroxide (Magnesium Hydroxide 400 Mg/5 Ml Susp 30 Ml Cup) 30 ml PO DAILY PRN PRN Reason: Constipation Last Admin: 04/11/21 22:03 Dose: 30 ml Documented by: Megestrol Acetate (Megestrol Susp 40 Mg/Ml 10 Ml Ud Cup) 400 mg PO DAILY [facility] Last Admin: 04/13/21 08:49 Dose: 400 mg Documented by: Metoprolol Succinate (Metoprolol Succinate 25 Mg Tab.Er) 25 mg PO DAILY [facility] Last Admin: 04/13/21 08:50 Dose: 25 mg Documented by: Multivitamins/Minerals (Multivitamins With Minerals/Iron/Folic Acid/Lycopene Tab ) 1 tab PO DAILY [facility] Last Admin: 04/13/21 08:49 Dose: 1 tab Documented by: Letrozole 2.5 Mg (Tablet - Nonform) 2.5 mg PO BEDTIME [facility] Last Admin: 04/12/21 20:14 Dose: 2.5 mg Documented by: Sennosides [Senna] 8 .6 Mg Tablet - Non Form 8.6 mg PO BID [facility] Last Admin: 04/13/21 08:52 Dose: 8.6 mg Documented by: Nystatin (Nystatin Topical Powder 15 Gm Bottle) 0 gm TOP BID PRN PRN Reason: rashes Pantoprazole Sodium (Pantoprazole 40 Mg Tab.Cr) 40 mg PO ACBREAKFAST [facility] Last Admin: 04/13/21 06:31 Dose: Not Given Documented by: Potassium Chloride (Potassium Chloride 20 Meq Tab.Er) 10 meq PO DAILY@1200 [facility] Last Admin: 04/12/21 11:11 Dose: 10 meq Documented by: Prednisone (Prednisone 20 Mg Tab) 20 mg PO DAILY [facility] Stop: 04/14/21 09:01 Last Admin: 04/13/21 08:51 Dose: 20 mg Documented by: Prednisone (Prednisone 10 Mg Tab) 10 mg PO DAILY [facility] Stop: 04/19/21 09:01 Trazodone HCl (Trazodone 50 Mg Tab) 50 mg PO BEDTIME [facility] Last Admin: 04/12/21 20:12 Dose: 50 mg Documented by: Vancomycin HCl (Pharmacy To Dose - Vancomycin) 1 dose .XX ASDIRECTED [facility] Discontinued Medications Albuterol/Ipratropium (Albuterol/Ipratropium 3.0-0.5 Mg/3 Ml Neb Soln) 3 ml NEB ONETIME ONE Stop: 04/10/21 19:09 Last Admin: 04/10/21 19:34 Dose: 3 ml Documented by: Albuterol/Ipratropium (Albuterol/Ipratropium 3.0-0.5 Mg/3 Ml Neb Soln) 3 ml NEB ONETIME ONE Stop: 04/10/21 19:59 Last Admin: 04/10/21 20:06 Dose: 3 ml Documented by: Cefepime HCl (Cefepime 1 Gm Vial) 1 gm IVPUSH ONETIME ONE Stop: 04/10/21 19:39 Last Admin: 04/10/21 20:10 Dose: 1 gm Documented by: Sodium Chloride (Normal Saline) 1,000 mls @ 999 mls/hr IV .BOLUS ONE Stop: 04/10/21 20:08 Last Admin: 04/10/21 19:34 Dose: 999 mls/hr Documented by: Vancomycin HCl 1 gm/ Sodium (Chloride) 250 mls @ 167 mls/hr IV ONETIME ONE Stop: 04/10/21 22:21 Last Admin: 04/10/21 21:07 Dose: 167 mls/hr Documented by: Cefepime HCl 2 gm/ Sodium (Chloride) 50 mls @ 100 mls/hr IV Q8HR [facility] Last Admin: 04/11/21 04:36 Dose: 100 mls/hr Documented by: Methylprednisolone Sodium Succinate (Methylprednisolone Sodium Succinate 125 Mg/2 Ml Sdv) 40 mg IVPUSH ONETIME ONE Stop: 04/12/21 02:54 Last Admin: 04/12/21 03:05 Dose: 40 mg Documented by: - Patient Data Lab Results Last 24 hrs: Laboratory Results - last 24 hr 04/13/21 Range/Units 08:30 Vancomycin Trough 24.8 (18.0-26.0) ug/mL Result Diagrams: 04/13/21 08:30 04/12/21 07:25 Riaz Results Last 24 hrs: Microbiology 04/10/21 20:25 Aerobic Blood Culture - Preliminary Blood - Arm, Right NO GROWTH AFTER 2 DAYS Anaerobic Blood Culture - Preliminary NO GROWTH AFTER 2 DAYS Sepsis Event Note - Evaluation Sepsis Screening Result: Sepsis Risk - Focused Exam Vital Signs: Vital Signs Temp Pulse Pulse Resp BP BP Pulse Ox 04/13/21 08:50 98 111/59 L 04/13/21 06:15 98 04/13/21 06:10 97.9 F 101 H 24 H 116/63 95 04/13/21 02:28 97.6 F 98 28 H 110/37 L 98 04/12/21 23:05 89 04/12/21 22:59 97.6 F 88 24 H 101/40 L 100 Pulse Ox 04/13/21 08:50 04/13/21 06:15 96 04/13/21 06:10 04/13/21 02:28 04/12/21 23:05 100 04/12/21 22:59 - Problem List Review Problem List Initiated/Reviewed/Updated: Yes - Plan Plan:: History of present illness Ms Coronado is a 65-year-old female that was admitted into INPT status with working diagnosis of pneumonia. Patient is a resident of [facility] and presented to the ED via EMS with sudden onset of SOB. She was in [place] day of admission and received Keytruda infusion for treatment of her small cell lung cancer and had been feeling at her baseline prior to the infusion however has had a persistent productive cough. Patient was recently hospitalized~ 2 weeks ago bilateral pneumonia thought to be aspiration component. She has history of chronic respiratory failure and is on home oxygen 4 to 5 L as baseline. Smoking status: Former Smoker Packs/day: 0.50 Types: Cigarettes Quit date: 06/08/2013 years since quittin.8 smokeless tobacco: Never Used ED pertinent findings/work-up Vital signs: BP 104/56, HR 105, temperature 97, MAP 72, pox 95% with 10 L X-ray Labs, WBC, 17.4, 85% neutrophils, D-dimer 668 (H), sodium potassium normal, lactate 1.9, BUNcreatinine; 14/0.79, BNP 222, negative troponin, albumin 2.62 --Recent/previous admssion CT neg for PE Hospital course 04/12/2021; was notified approximately 0300 this morning due to coarse wheezing mild shortness of breath, nurses desired earlier duo nebs order given continue every 6 duo nebs however can have as needed every 2 hours--felt much better after DuoNeb with less wheezing less shortness of breath. Solu-Medrol 40 mg IV push x1. This morning the patient states she feels much better with no more shortness of breath. Primary hospital problems Pneumonia in the setting of lung cancer, Risk for MDR COPD, recent steroids, nebulizers Chronic respiratory failure, diuretics, p.o. beta-blockers Dysphagia, recent video study demonstrated no signs of aspiration with thin consistency however there was penetration quite deeply with mixed consistencies, patient has been undergoing speech therapy Chronic conditions Lung CA, non-small cell, RUL, DX 2017, contributory HFpEF, systolic, chronic, ECHO EF 55% with pulmonary artery systolic pressure of 52 and moderate PAH CAD, ASA, Plavix, beta-skye Hypertension, Lopressor VANDANA GERD with hx of esophageal stenosis requiring frequent dilation History of brain aneurysm, subarachnoid hemorrhage, hemiplegia, ischemic stroke, 2010 Breast CA, right sided ductal carcinoma, mastectomy 2018, remission Osteoporosis, Depression Disposition/overall plan --Hold this morning's vancomycin due to elevated trough, restart tonight repeat Vanco trough in a.m. --Patient meets ongoing inpatient qualification due to IV antibiotics, oxygen needs above baseline --Monitor oxygen status carefully, low threshold for BiPAP support given history --HOLD Performist, change nebulizers with DuoNeb's q6hrs
[2021-04-13 10:58] VITALS: BP 115/61; PULSE 96
[2021-04-13] MEDS: Potassium Chloride 20 MEQ Tab.ER PO SCH (11:05)
--- NOTE | 2021-04-13 11:42 | PCM.DCSUM1 ---
Discharge Summary - Hospital Course Diagnosis: Stroke: No - Discharge Data Discharge Date: 04/13/21 Discharge Disposition: DC/Tfer to [facility] 63 Condition: Good - Referral to Home Health Primary Care Physician: Deb Gillis MD - Patient Instructions Diet: Usual Diet as Tolerated Activity: Cough & Deep Breathe Showering/Bathing: May Shower Notify Provider of: Fever Other/Special Instructions: --Report any hypoxia or worsening shortness of b reath. --Added 7 days of levofloxacin to ensure strep pneumoniae coverage. --Can Continue on doxycycline (stop 05/02). --Incentive Spirometer w2 hrs while awake. --HOLD Anora Ellipta x 48 hrs then restart. --Duo Nebs scheduled until Anora is resumed then changed to Daily PRN. --DC'd Performist - Discharge Plan *PRESCRIPTION DRUG MONITORING PROGRAM REVIEWED*: Not Applicable *COPY OF PRESCRIPTION DRUG MONITORING REPORT IN PATIENT ELISA: Not Applicable Prescriptions/Med Rec: levoFLOXacin [Levaquin] 750 mg PO DAILY 7 Days #7 tab Home Medications: Home Meds Aspirin [Chloe Chewable Aspirin] 81 mg PO DAILY 02/21/14 [History] Cholecalciferol (Vitamin D3) [Vitamin D3] 2,000 unit PO DAILY 02/21/14 [History] Clopidogrel [Plavix] 75 mg PO DAILY 02/21/14 [History] Folic Acid 1 mg PO DAILY 02/21/14 [History] Sennosides [Senna] 8.6 mg PO BID 02/21/14 [History] Albuterol [Proventil Neb Soln] 2.5 mg NEB 1300,1900 06/08/17 [History] Hypromellose [Genteal Tears Severe] 1 drop EYEBOTH QID PRN 06/08/17 [History] guaiFENesin [Tussin] 100 mg PO Q4HR PRN 06/08/17 [History] Acetaminophen 650 mg PO TID 02/06/19 [History] FLUoxetine [PROzac] 60 mg PO DAILY 02/06/19 [History] Furosemide [Lasix] 20 mg PO 1200 PRN 02/06/19 [History] Pantoprazole Sodium [Protonix] 40 mg PO DAILY 02/06/19 [History] Potassium Bicarbonate/Cit Ac [Effer-K] 10 meq PO DAILY 02/06/19 [History] Furosemide 40 mg PO DAILY 06/30/19 [History] Ipratropium [Atrovent] 0.5 mg INH 0800,1600,2000 06/30/19 [History] Ascorbate Calcium [Vitamin C] 500 mg PO TID 07/22/19 [History] Ferrous Gluconate 324 mg PO BID 07/22/19 [History] Letrozole 2.5 mg PO BEDTIME 01/04/20 [History] Lidocaine/Prilocaine [EMLA Crm] 30 gm TP ASDIRECTED PRN 07/11/20 [History] traZODone HCl [Trazodone HCl] 50 mg PO BEDTIME 07/11/20 [History] Doxycycline [Vibramycin] 100 mg PO BID 04/10/21 [History] Megestrol [Megace 40 MG/ML Susp] 400 mg PO DAILY 04/10/21 [History] Metoprolol Succinate [Toprol Xl] 25 mg PO DAILY 04/10/21 [History] Multivit-Min/FA/Lycopen/Lutein [Sentry Senior Tablet] 1 tab PO DAILY 04/10/21 [History] Nystatin 1 each TOP BID PRN 04/10/21 [History] predniSONE [Prednisone] 20 mg PO ASDIRECTED 04/10/21 [History] Heparin Sodium,Porcine/PF [Heparin Lock Flush 100 Unit/ml] 5 ml IVPUSH ASDIRECTED 04/11/21 [History] levoFLOXacin [Levaquin] 750 mg PO DAILY 7 Days #7 tab 04/13/21 [Rx] Oxygen Therapy Mode: Nasal Cannula Oxygen Flow Rate (L/min): 5 Referrals: Deb Gillis MD [Primary Care Provider] - - Discharge Summary/Plan Comment DC Time >30 min.: Yes Discharge Summary/Plan Comment: Final diagnosis --Pneumonia in the setting of lung cancer, Risk for MDR --COPD, mild exacerbation, --Chronic respiratory failure, --Dysphagia, recent video study demonstrated no signs of aspiration with thin consistency however there was penetration quite deeply with mixed consistencies, patient has been undergoing speech therapy Chronic conditions Lung CA, non-small cell, RUL, DX 2018, contributory HFpEF, systolic, chronic, ECHO EF 55% with pulmonary artery systolic pressure of 52 and moderate PAH CAD, ASA, Plavix, beta-skye Hypertension, Lopressor VANDANA GERD with hx of esophageal stenosis requiring frequent dilation History of brain aneurysm, subarachnoid hemorrhage, hemiplegia, ischemic stroke, 2011 Breast CA, right sided ductal carcinoma, mastectomy 2019, remission Osteoporosis, Depression History summary Ms Coronado is a 65-year-old female that was admitted into INPT status with working diagnosis of pneumonia. Patient is a resident of [facility] and presented to the ED via EMS with sudden onset of SOB. She was in [place] day of admission and received Keytruda infusion for treatment of her small cell lung cancer and had been feeling at her baseline prior to the infusion however has had a persistent productive cough. Patient was recently hospitalized~ 2 weeks ago bilateral pneumonia thought to be aspiration component. She has history of chronic respiratory failure and is on home oxygen 4-5 L as baseline. Smoking status: Former Smoker Packs/day: 0.50 Types: Cigarettes Quit date: 06/08/2013 years since quittin.8 smokeless tobacco: Never Used ED pertinent findings/work-up Vital signs: BP 104/56, HR 105, temperature 97, MAP 72, pox 95% with 10 L X-ray Labs, WBC, 17.4, 85% neutrophils, D-dimer 668 (H), sodium potassium normal, lactate 1.9, BUNcreatinine; 14/0.79, BNP 222, negative troponin, albumin 2.62 --Recent/previous admission CT neg for PE Hospital course 04/12/2021; was notified approximately 0300 this morning due to coarse wheezing mild shortness of breath, nurses desired earlier duo nebs order given continue every 6 duo nebs however can have as needed every 2 hours--felt much better after DuoNeb with less wheezing less shortness of breath. Solu-Medrol 40 mg IV push x1. This morning the patient states she feels much better with no more shortness of breath. 04/13/2021; on rounds, patient feeling much better as she has clinically improve d, desires to return back, less shortness of breath, now at her baseline oxygen status, inflammatory indices slowly improving--likely lagging. BC NGTD, Vanco trough upon discharge slightly elevated at 24. She had no side effects or adverse events to treatments and/or medications. Her oxygen status improved, she had no fevers, no sputum. I had low threshold for BiPAP support however she never required support. Her performance was held upon admission and was discontinued upon discharge as I feel Anora Ellipta (LABA/LAMA) and changing her duo nebs to as needed should be adequately suffice Medication changes/adjustments upon discharge --Added 7 days of levofloxacin to ensure strep pneumoniae coverage --Can Continue on doxycycline (stop 05/02) --Incentive Spirometer w2 hrs while awake. --HOLD Anora Ellipta x 48 hrs then restart --Duo Nebs scheduled until Anora is resumed then changed to Daily PRN --DC'd Performist Disposition --Patient will be transferred back to her resident at [facility] --Nursing staff to monitor respiratory status and ensure her incentive spirometer every 2 hours while awake over the next 5 days --Please report any worsening respiratory status or need for BiPAP support - General Info Date of Service: 04/13/21 Functional Status: Reports: Pain Controlled, Tolerating Diet, Incentive Spirometry. Denies: Ambulating - Review of Systems General: Denies: Fever, Weakness HEENT: Denies: Sore Throat Pulmonary: Reports: Cough (much improved), Wheezing (Improved in wheezing). Denies: Shortness of Breath, Sputum Gastrointestinal: Reports: No Symptoms Neurological: Reports: Pre-Existing Deficit, Other (Sided hemiplegia). Denies: Confusion Psychiatric: Reports: No Symptoms - Patient Data Vitals - Most Recent: Last Vital Signs Temp 97.6 F 04/13/21 10:57 Pulse 96 04/13/21 10:57 Resp 23 H 04/13/21 10:57 BP 115/61 04/13/21 10:57 Pulse Ox 97 04/13/21 10:57 Weight - Most Recent: 159 lb 9 oz I&O - Last 24 hours: Intake & Output 04/12/21 04/13/21 04/13/21 22:59 06:59 14:59 Intake Total 350 475 Balance 350 475 Lab Results - Last 24 hrs: Laboratory Results - last 24 hr 04/13/21 04/13/21 Range/Units 08:30 08:30 WBC 17.42 H (5.00-10.00) 10^3/uL RBC 3.28 L (3.80-5.50) 10^6/uL Hgb 8.9 L (12.0-16.0) g/dL Hct 31.0 L (37.0-47.0) % MCV 94.5 H (82.0-92.0) fL MCH 27.1 (27.0-31.0) pg MCHC 28.7 L (32.0-36.0) g/dL RDW 16.8 H (11.5-14.5) % Plt Count 376 (150-400) 10^3/uL MPV 10.4 (7.4-10.4) fL Immature Gran % (Auto) 0.4 (0.0-5.0) % Neut % (Auto) 89.1 H (50.0-70.0) % Lymph % (Auto) 4.6 L (20.0-40.0) % Evangeline % (Auto) 4.6 (2.0-8.0) % Eos % (Auto) 1.1 (1.0-3.0) % Baso % (Auto) 0.2 (0.0-1.0) % Neut # (Auto) 15.52 H (2.50-7.00) 10^3/uL Lymph # (Auto) 0.80 L (1.00-4.00) 10^3/uL Evangeline # (Auto) 0.81 H (0.10-0.80) 10^3/uL Eos # (Auto) 0.19 (0.10-0.30) 10^3/uL Baso # (Auto) 0.03 (0.00-0.10) 10^3/uL Immature Gran # (Auto) 0.07 (0.00-0.50) 10^3/uL Vancomycin Trough 24.8 (18.0-26.0) ug/mL BARRETT Results - Last 24 hrs: Microbiology 04/10/21 20:25 Aerobic Blood Culture - Preliminary Blood - Arm, Right NO GROWTH AFTER 2 DAYS Anaerobic Blood Culture - Preliminary NO GROWTH AFTER 2 DAYS Med Orders - Current: Current Medications Acetaminophen (Acetaminophen 325 Mg Tab) 650 mg PO TID [facility] Last Admin: 04/13/21 08:50 Dose: 650 mg Documented by: Acetaminophen (Acetaminophen 325 Mg Tab) 650 mg PO Q4H PRN PRN Reason: Pain (moderate 4-6) Albuterol (Albuterol 0.083% 2.5 Mg/3 Ml Neb Soln) 2.5 mg NEB BIDRT [facility] Last Admin: 04/11/21 07:03 Dose: Not Given Documented by: Albuterol/Ipratropium (Albuterol/Ipratropium 3.0-0.5 Mg/3 Ml Neb Soln) 3 ml NEB Q6HRRT [facility] Last Admin: 04/13/21 10:49 Dose: 3 ml Documented by: Albuterol/Ipratropium (Albuterol/Ipratropium 3.0-0.5 Mg/3 Ml Neb Soln) 3 ml NEB Q2H PRN PRN Reason: Shortness of Breath Artificial Tears (Carboxymethylcellulose Sodium 0.5% Ophth Soln 15 Ml Bottle) 0 ml EYEBOTH QID PRN PRN Reason: Dry Eyes Ascorbic Acid (Ascorbic Acid 500 Mg Tab) 500 mg PO TID [facility] Last Admin: 04/13/21 08:51 Dose: 500 mg Documented by: Aspirin (Aspirin 81 Mg Tab.Chew) 81 mg PO DAILY [facility] Last Admin: 04/13/21 08:51 Dose: 81 mg Documented by: Cholecalciferol (Cholecalciferol (Vitamin D3) 25 Mcg Tab) 50 mcg PO DAILY [facility] Last Admin: 04/13/21 08:50 Dose: 50 mcg Documented by: Clopidogrel Bisulfate (Clopidogrel 75 Mg Tab) 75 mg PO DAILY [facility] Last Admin: 04/13/21 08:49 Dose: 75 mg Documented by: Ferrous Sulfate (Ferrous Sulfate 325 Mg Tab) 325 mg PO BID [facility] Last Admin: 04/13/21 08:49 Dose: 325 mg Documented by: Fluoxetine HCl (Fluoxetine 10 Mg Cap) 60 mg PO DAILY [facility] Last Admin: 04/13/21 08:49 Dose: 60 mg Documented by: Folic Acid (Folic Acid 1 Mg Tab) 1 mg PO DAILY [facility] Last Admin: 04/13/21 08:51 Dose: 1 mg Documented by: Formoterol Fumarate (Formoterol 20 Mcg/2 Ml Neb) 20 mcg INH BIDRT [facility] Last Admin: 04/11/21 10:00 Dose: 20 mcg Documented by: Furosemide (Furosemide 40 Mg Tab) 40 mg PO DAILY [facility] Last Admin: 04/13/21 08:51 Dose: 40 mg Documented by: Guaifenesin (Guaifenesin 100 Mg/5 Ml Soln 5 Ml Ud Cup) 100 mg PO Q4HR PRN PRN Reason: Cough Last Admin: 04/12/21 21:48 Dose: 100 mg Documented by: Sodium Chloride (Normal Saline) 100 mls @ 125 mls/hr IV ASDIRECTED [facility] Last Admin: 04/12/21 20:56 Dose: 125 mls/hr Documented by: Cefepime HCl 2 gm/ Sodium (Chloride) 50 mls @ 100 mls/hr IV Q8H [facility] Last Admin: 04/13/21 05:58 Dose: 100 mls/hr Documented by: Vancomycin HCl 1 gm/ Sodium (Chloride) 250 mls @ 166.667 mls/hr IV Q12H [facility] Ipratropium [place] (Ipratropium 0.02% 0.5 Mg/2.5 Ml Neb Soln) 0.5 mg INH TIDRT [facility] Last Admin: 04/11/21 06:20 Dose: 0.5 mg Documented by: Magnesium Hydroxide (Magnesium Hydroxide 400 Mg/5 Ml Susp 30 Ml Cup) 30 ml PO DAILY PRN PRN Reason: Constipation Last Admin: 04/11/21 22:03 Dose: 30 ml Documented by: Megestrol Acetate (Megestrol Susp 40 Mg/Ml 10 Ml Ud Cup) 400 mg PO DAILY [facility] Last Admin: 04/13/21 08:49 Dose: 400 mg Documented by: Metoprolol Succinate (Metoprolol Succinate 25 Mg Tab.Er) 25 mg PO DAILY [facility] Last Admin: 04/13/21 08:50 Dose: 25 mg Documented by: Multivitamins/Minerals (Multivitamins With Minerals/Iron/Folic Acid/Lycopene Tab) 1 tab PO DAILY [facility] Last Admin: 04/13/21 08:49 Dose: 1 tab Documented by: Letrozole 2.5 Mg (Tablet - Nonform) 2.5 mg PO BEDTIME [facility] Last Admin: 04/12/21 20:14 Dose: 2.5 mg Documented by: Sennosides [Senna] 8 .6 Mg Tablet - Non Form 8.6 mg PO BID [facility] Last Admin: 04/13/21 08:52 Dose: 8.6 mg Documented by: Nystatin (Nystatin Topical Powder 15 Gm Bottle) 0 gm TOP BID PRN PRN Reason: rashes Pantoprazole Sodium (Pantoprazole 40 Mg Tab.Cr) 40 mg PO ACBREAKFAST [facility] Last Admin: 04/13/21 06:31 Dose: Not Given Documented by: Potassium Chloride (Potassium Chloride 20 Meq Tab.Er) 10 meq PO DAILY@1200 [facility] Last Admin: 04/13/21 11:05 Dose: 10 meq Documented by: Prednisone (Prednisone 20 Mg Tab) 20 mg PO DAILY [facility] Stop: 04/14/21 09:01 Last Admin: 04/13/21 08:51 Dose: 20 mg Documented by: Prednisone (Prednisone 10 Mg Tab) 10 mg PO DAILY [facility] Stop: 04/19/21 09:01 Trazodone HCl (Trazodone 50 Mg Tab) 50 mg PO BEDTIME [facility] Last Admin: 04/12/21 20:12 Dose: 50 mg Documented by: Vancomycin HCl (Pharmacy To Dose - Vancomycin) 1 dose .XX ASDIRECTED [facility] Discontinued Medications Albuterol/Ipratropium (Albuterol/Ipratropium 3.0-0.5 Mg/3 Ml Neb Soln) 3 ml NEB ONETIME ONE Stop: 04/10/21 19:09 Last Admin: 04/10/21 19:34 Dose: 3 ml Documented by: Albuterol/Ipratropium (Albuterol/Ipratropium 3.0-0.5 Mg/3 Ml Neb Soln) 3 ml NEB ONETIME ONE Stop: 04/10/21 19:59 Last Admin: 04/10/21 20:06 Dose: 3 ml Documented by: Cefepime HCl (Cefepime 1 Gm Vial) 1 gm IVPUSH ONETIME ONE Stop: 04/10/21 19:39 Last Admin: 04/10/21 20:10 Dose: 1 gm Documented by: Sodium Chloride (Normal Saline) 1,000 mls @ 999 mls/hr IV .BOLUS ONE Stop: 04/10/21 20:08 Last Admin: 04/10/21 19:34 Dose: 999 mls/hr Documented by: Vancomycin HCl 1 gm/ Sodium (Chloride) 250 mls @ 167 mls/hr IV ONETIME ONE Stop: 04/10/21 22:21 Last Admin: 04/10/21 21:07 Dose: 167 mls/hr Documented by: Cefepime HCl 2 gm/ Sodium (Chloride) 50 mls @ 100 mls/hr IV Q8HR [facility] Last Admin: 04/11/21 04:36 Dose: 100 mls/hr Documented by: Vancomycin HCl 1 gm/ Sodium (Chloride) 250 mls @ 166.667 mls/hr IV Q12H [facility] Last Admin: 04/13/21 09:47 Dose: Not Given Documented by: Methylprednisolone Sodium Succinate (Methylprednisolone Sodium Succinate 125 Mg/2 Ml Sdv) 40 mg IVPUSH ONETIME ONE Stop: 04/12/21 02:54 Last Admin: 04/12/21 03:05 Dose: 40 mg Documented by: - Exam Quality Assessment: Reports: Supplemental Oxygen General: Reports: Alert, Oriented, Cooperative Lungs: Reports: Rhonchi, Wheezing (Very slight wheeze) Cardiovascular: Reports: Regular Rate, Regular Rhythm. Denies: Tachycardia GI/Abdominal Exam: Normal Bowel Sounds, Soft (Female) Exam: Deferred Extremities: No Pedal Edema Neurological: Reports: Other (Left-sided hemiplegia) Psy/Mental Status: Reports: Alert, Normal Affect
[2021-04-15] MEDS ORDERED: predniSONE 10 MG Tab PO SCH (09:00)
== END 2021-04-13 13:40 | DRG 194 ==
LOC: KA.ED 19:04 → KA.MS 20:53
PROVIDERS: ADMIT Physician Assistant Medical; ATTEND Nurse Practitioner Family
DX: J18.9 Pneumonia, unspecified organism (principal); R09.02 Hypoxemia; R79.1 Abnormal coagulation profile; J44.1 Chronic obstructive pulmonary disease with (acute) exacerbation; J96.11 Chronic respiratory failure with hypoxia; H04.129 Dry eye syndrome of unspecified lacrimal gland; I50.9 Heart failure, unspecified; C34.11 Malignant neoplasm of upper lobe, right bronchus or lung; J44.0 Chronic obstructive pulmonary disease with (acute) lower respiratory infection; I50.42 Chronic combined systolic (congestive) and diastolic (congestive) heart failure; D84.9 Immunodeficiency, unspecified; I11.0 Hypertensive heart disease with heart failure; I69.354 Hemiplegia and hemiparesis following cerebral infarction affecting left non-dominant side; I27.21 Secondary pulmonary arterial hypertension; M81.0 Age-related osteoporosis without current pathological fracture; D64.9 Anemia, unspecified; F32.9 Major depressive disorder, single episode, unspecified; I25.10 Atherosclerotic heart disease of native coronary artery without angina pectoris; K21.9 Gastro-esophageal reflux disease without esophagitis; Z91.041 Radiographic dye allergy status; H54.7 Unspecified visual loss; K59.09 Other constipation; Z99.81 Dependence on supplemental oxygen; K57.90 Diverticulosis of intestine, part unspecified, without perforation or abscess without bleeding; R32 Unspecified urinary incontinence; Z87.440 Personal history of urinary (tract) infections; F31.9 Bipolar disorder, unspecified; F41.9 Anxiety disorder, unspecified; Z79.01 Long term (current) use of anticoagulants; D50.9 Iron deficiency anemia, unspecified; Z98.49 Cataract extraction status, unspecified eye; Z90.710 Acquired absence of both cervix and uterus; Z86.73 Personal history of transient ischemic attack (TIA), and cerebral infarction without residual deficits; Z85.3 Personal history of malignant neoplasm of breast; Z90.11 Acquired absence of right breast and nipple; Z79.82 Long term (current) use of aspirin; Z79.02 Long term (current) use of antithrombotics/antiplatelets; Z79.899 Other long term (current) drug therapy; Z87.891 Personal history of nicotine dependence; Z91.09 Other allergy status, other than to drugs and biological substances; Z88.5 Allergy status to narcotic agent; Z88.8 Allergy status to other drugs, medicaments and biological substances; Z79.52 Long term (current) use of systemic steroids; Z20.822 Contact with and (suspected) exposure to COVID-19; Z20.828 Contact with and (suspected) exposure to other viral communicable diseases
CPT/HCPCS: 36415; 71045; 80053; 82550; 82553; 83605; 83880; 84145; 84484; 85025; 85379; 87040 ×2; 87635; 93005; 96374; 99285; J0692; J7030; 80048; 80202; 94640; 99284; A9270-GY; J2930; J3370; J7050; J7512; J7606; J7613-GY; J7620-GY; U0002

== ENCOUNTER 2021-04-30 07:50 | Emergency (ER) | payer MEDICAID ==
--- NOTE | 2021-04-30 08:41 | CR ---
[id number] RAD/RAD Chest PA or AP 1V EXAM: RAD Chest PA or AP 1V INDICATION: SHORT OF BREATH. COMPARISON: April 10, 2021. DISCUSSION: Right chest wall Mediport. Median sternotomy wires. Cardiomediastinal silhouette is stated in size and contour. Chronic opacification of both lung apices, similar to the prior exam. Stable infiltrate at the left lung base. Increasing opacification overlying the right hemithorax.. IMPRESSION: Increase in opacification overlying the right hemithorax. This may be infectious/inflammatory in nature. Additional findings are unchanged when compared to the prior. Matt Shen DO 04/30/21 0840 Thank you for allowing us to participate in the care of your patient.
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
[2021-04-30 09:30] LABS: ANION GAP 13.3 mmol/L (5-15); CHLORIDE,CL 105 mmol/L (98-107); SODIUM,NA 144 mmol/L (136-145)
[2021-04-30 11:17] VITALS: PULSE 106
[2021-04-30 11:32] VITALS: BP 120/58
== END 2021-04-30 11:50 ==
LOC: KA.ED 07:50
DX: C34.12 Malignant neoplasm of upper lobe, left bronchus or lung (principal); J44.9 Chronic obstructive pulmonary disease, unspecified; J18.9 Pneumonia, unspecified organism; I11.0 Hypertensive heart disease with heart failure; I50.9 Heart failure, unspecified; K21.9 Gastro-esophageal reflux disease without esophagitis; Z87.891 Personal history of nicotine dependence; Z79.82 Long term (current) use of aspirin; Z79.02 Long term (current) use of antithrombotics/antiplatelets; Z79.899 Other long term (current) drug therapy
CPT/HCPCS: 36415; 36556; 71045; 80048; 83605; 83880; 85025; 87040; 99284; 99285-25; J1642

== ENCOUNTER 2021-06-09 18:32 | Observation (INO) | payer MEDICAID ==
[2021-06-09] MEDS ORDERED: Sodium Chloride 0.9% 10 ML Syringe FLUSH PRN (19:04)
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
--- NOTE | 2021-06-09 19:31 | CR ---
[id number] RAD/RAD Chest Portable EXAM: RAD Chest Portable INDICATION: SOB COMPARISON: Multiple priors, most recent from April 30, 2021. DISCUSSION/IMPRESSION: Chronic opacities in both lungs correlates with areas of scarring seen on prior CT examination. Increased hazy opacification in the left lung base since the prior examination. Finding is nonspecific. This could represent a layering pleural effusion not present previously. Persistent nodularity in the right lung. This correlates with mass seen on prior CT. Size has slightly increased compared to the prior radiograph examination. No definitive evidence of pneumonia or other new acute findings. Chemo Hdez MD 06/09/21 [id number] Thank you for allowing us to participate in the care of your patient.
--- NOTE | 2021-06-09 20:52 | CT ---
[id number] CT/CT Chest WO IV EXAM: CT Chest WO IV CLINICAL DATA: MASS, SOB, ELEVATED D DIMER COMPARISON STUDY: Multiple priors, most recent from March 26, 2021. FINDINGS: Lungs: Increased dense parenchymal opacification in the anterior paramediastinal region of the left midlung measuring approximately 55 mm craniocaudal by 26 mm transverse by 36 mm AP. This was not present previously. There is a satellite groundglass opacification and intralobular septal thickening. Increased size of previously seen right upper lobe mass. This measures approximately 36 x 16 x 28 mm compared to 27 x 17 x 24 mm previously. Previously seen dense parenchymal consolidation in the bilateral lung apices is similar to the prior examination however, does appear to be a slightly increased nodular component along the inferior margin of this consolidation on the right, now almost touching the fissure. Findings are seen best when comparing series 5 image 57 and today's examination with series 5 image 40 of the prior examination. Subpleural opacification in the right lung base has improved compared to the prior examination. Mediastinum: Improved appearance of cervical chain lymphadenopathy on the right. Previously seen node that measured up to 11 mm in short axis diameter in the right supraclavicular station measures 5 mm on today's examination (series 2 image 10). Debris in the trachea with tracheal wall thickening. Finding was not seen previously. Heart and great vessels: Unchanged from the prior examination. Bones: No acute fracture or compression deformity. Spondylosis. Upper abdomen: Unremarkable. IMPRESSION: Increased parenchymal consolidation in both lungs compared to the prior examination. Findings are nonspecific. Additionally there is tracheal wall thickening and retained secretions. However, previously seen right supraclavicular lymphadenopathy has resolved and previously seen subpleural right lower lobe parenchymal opacification has improved. Other findings are described above. Chemo Hdez MD 06/09/212049 Thank you for allowing us to participate in the care of your patient.
[2021-06-09] MEDS ORDERED: Azithromycin 500 MG in Sodium Chloride 0.9% 250 ML IV ONE (21:01)
[2021-06-09] MEDS ORDERED: cefTRIAXone 1 GM Vial IVPUSH ONE (21:03)
[2021-06-09] MEDS ORDERED: Water For Injection, Sterile 20 ML ONE (21:05)
[2021-06-09] MEDS ORDERED: cefTRIAXone 1 GM Vial ONE (21:05)
[2021-06-09 21:25] LABS: ANION GAP 12.9 mmol/L (5-15); CHLORIDE,CL 100 mmol/L (98-107); SODIUM,NA 144 mmol/L (136-145)
[2021-06-09] MEDS ORDERED: Sodium Chloride 0.9% 100 ML ONE (21:29)
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
[2021-06-10] MEDS ORDERED: Sodium Chloride 7% 4 ML Neb Soln ONE (11:34)
[2021-06-10] MEDS ORDERED: NYSTATIN TOP PRN (12:58)
[2021-06-10] MEDS ORDERED: GLYCOPYRROLATE 1 MG PO SCH (13:30)
[2021-06-10] MEDS ORDERED: ALPRAZOLAM 0.25 MG PO SCH (13:30)
[2021-06-10] MEDS ORDERED: EFFER K PO SCH (13:45)
[2021-06-10] MEDS ORDERED: Furosemide 40 MG Tab **PTOM PO PRN (13:50)
[2021-06-10] MEDS ORDERED: Carboxymethylcellulose Sodium 0.5% Ophth Soln 15 ML Bottle EYEBOTH PRN (14:00)
[2021-06-10] MEDS: Furosemide 40 MG Tab **PTOM PO SCH (14:02)
[2021-06-10] MEDS: Clopidogrel 75 MG Tab **PTOM PO SCH (14:02)
[2021-06-10] MEDS: ASCORBIC ACID 500 MG PO SCH ×2 (14:03→22:07)
[2021-06-10] MEDS: Metoprolol Succinate 25 MG Tab.ER **PTOM PO SCH (14:03)
[2021-06-10] MEDS: FLUOXETINE 20 MG/5 ML PO SCH (14:03)
[2021-06-10] MEDS ORDERED: guaiFENesin 100 MG/5 ML Soln 5 ML UD Cup PO PRN (14:56)
[2021-06-10] MEDS ORDERED: Sodium Chloride 0.9% 10 ML Syringe IV PRN (15:03)
[2021-06-10] MEDS: SENNOSIDES 8.6 MG PO SCH (16:36)
[2021-06-10] MEDS: PERFOROMIST 20 MCG/2 ML INH SCH ×2 (16:36→17:21)
[2021-06-10] MEDS ORDERED: Albuterol 0.083% 2.5 MG/3 ML Neb Soln INH SCH (18:00)
[2021-06-10] MEDS ORDERED: Albuterol 0.083% 2.5 MG/3 ML Neb Soln INH PRN (18:06)
[2021-06-10] MEDS: Acetaminophen 325 MG Tab PO PRN (19:43)
[2021-06-10] MEDS ORDERED: cefTRIAXone 1 GM Vial IVPUSH SCH (20:00)
[2021-06-10] MEDS ORDERED: TRAZODONE HCL 50 MG PO SCH (21:00)
[2021-06-10] MEDS ORDERED: LETROZOLE 2.5 MG PO SCH (21:00)
[2021-06-10] MEDS ORDERED: OLANZAPINE 2.5 MG PO SCH (21:00)
[2021-06-10] MEDS: FERROUS GLUCONATE 324 MG PO SCH (22:04)
[2021-06-10] MEDS: Acetaminophen 325 MG Tab PO SCH (22:08)
[2021-06-10] MEDS: Budesonide 0.5 MG/2 ML Neb Susp **PTOM NEB SCH (22:12)
[2021-06-11] MEDS: Acetaminophen 325 MG Tab PO PRN (04:02)
[2021-06-11] MEDS: PERFOROMIST 20 MCG/2 ML INH SCH (07:05)
[2021-06-11] MEDS: Budesonide 0.5 MG/2 ML Neb Susp **PTOM NEB SCH (07:52)
[2021-06-11] MEDS: SENNOSIDES 8.6 MG PO SCH (08:19)
[2021-06-11] MEDS: Metoprolol Succinate 25 MG Tab.ER **PTOM PO SCH (08:21)
[2021-06-11] MEDS: ASCORBIC ACID 500 MG PO SCH (08:22)
[2021-06-11] MEDS: FERROUS GLUCONATE 324 MG PO SCH (08:23)
[2021-06-11 08:26] VITALS: BP 132/71
[2021-06-11] MEDS: Furosemide 40 MG Tab **PTOM PO SCH (08:26)
[2021-06-11] MEDS: Clopidogrel 75 MG Tab **PTOM PO SCH (08:26)
[2021-06-11] MEDS: Acetaminophen 325 MG Tab PO SCH (08:30)
[2021-06-11] MEDS: FLUOXETINE 20 MG/5 ML PO SCH (08:32)
[2021-06-11 08:34] VITALS: PULSE 96
--- NOTE | 2021-06-11 08:53 | PCM.DCSUM1 ---
Discharge Summary - Hospital Course Diagnosis: Stroke: No - Discharge Data Discharge Date: 06/11/21 Discharge Disposition: DC/Tfer to SNF 03 Condition: Poor - Referral to Home Health Primary Care Physician: Deb Gillis MD - Patient Instructions Diet: Usual Diet as Tolerated Activity: Cough & Deep Breathe Showering/Bathing: May Shower Notify Provider of: Fever, Nausea and/or Vomiting - Discharge Plan *PRESCRIPTION DRUG MONITORING PROGRAM REVIEWED*: Not Applicable *COPY OF PRESCRIPTION DRUG MONITORING REPORT IN PATIENT ELISA: Not Applicable Prescriptions/Med Rec: Azithromycin 250 mg PO DAILY #30 tablet cefTRIAXone [Rocephin] 1 gm IM DAILY 4 Days #4 ml Home Medications: Home Meds Aspirin [Chloe Chewable Aspirin] 81 mg PO DAILY 02/21/14 [History] Cholecalciferol (Vitamin D3) [Vitamin D3] 2,000 unit PO DAILY 02/21/14 [History] Clopidogrel [Plavix] 75 mg PO DAILY 02/21/14 [History] Folic Acid 1 mg PO DAILY 02/21/14 [History] Sennosides [Senna] 8.6 mg PO BID 02/21/14 [History] Albuterol [Proventil Neb Soln] 2.5 mg NEB Q6H 06/08/17 [History] Hypromellose [Genteal Tears Severe] 1 drop EYEBOTH QID PRN 06/08/17 [History] guaiFENesin [Tussin] 100 mg PO Q4HR PRN 06/08/17 [History] Acetaminophen 650 mg PO TID 02/06/19 [History] FLUoxetine [PROzac] 60 mg PO DAILY 02/06/19 [History] Furosemide [Lasix] 20 mg PO 1200 PRN 02/06/19 [History] Pantoprazole Sodium [Protonix] 40 mg PO DAILY 02/06/19 [History] Potassium Bicarbonate/Cit Ac [Effer-K] 10 meq PO DAILY 02/06/19 [History] Furosemide 40 mg PO DAILY 06/30/19 [History] Ascorbate Calcium [Vitamin C] 500 mg PO TID 07/22/19 [History] Ferrous Gluconate 324 mg PO BID 07/22/19 [History] Letrozole 2.5 mg PO BEDTIME 01/04/20 [History] Lidocaine/Prilocaine [EMLA Crm] 30 gm TP ASDIRECTED PRN 07/11/20 [History] traZODone HCl [Trazodone HCl] 75 mg PO BEDTIME 07/11/20 [History] Megestrol [Megace 40 MG/ML Susp] 400 mg PO DAILY 04/10/21 [History] Metoprolol Succinate [Toprol Xl] 25 mg PO DAILY 04/10/21 [History] Multivit-Min/FA/Lycopen/Lutein [Sentry Senior Tablet] 1 tab PO DAILY 04/10/21 [History] Nystatin 1 each TOP BID PRN 04/10/21 [History] Heparin Sodium,Porcine/PF [Heparin Lock Flush 100 Unit/ml] 5 ml IVPUSH ASDIRECTED 04/11/21 [History] Formoterol Fumarate [Perforomist] 20 mcg IH BID 04/30/21 [History] predniSONE [Prednisone] 20 mg PO DAILY 05/01/21 [History] ALPRAZolam [Alprazolam] 0.25 mg PO DAILY 05/08/21 [History] Glycopyrrolate 2 mg PO DAILY 05/08/21 [History] Acetaminophen 650 mg PO Q4H PRN 06/09/21 [History] Budesonide [Pulmicort] 0.5 mg IH BID 06/09/21 [History] OLANZapine [Olanzapine] 2.5 mg PO DAILY 06/09/21 [History] Azithromycin 250 mg PO DAILY #30 tablet 06/11/21 [Rx] cefTRIAXone [Rocephin] 1 gm IM DAILY 4 Days #4 ml 06/11/21 [Rx] - Discharge Summary/Plan Comment DC Time >30 min.: Yes Total # of Minutes for Discharge Time: 65 minutes Discharge Summary/Plan Comment: Final Dx: Suspect pneumonia Chronic respiratory failure, Chronic conditions Lung CA, non-small cell, RUL, DX 2018, contributory HFpEF, systolic, chronic, ECHO EF 55% with pulmonary artery systolic pressure of 52 and moderate PAH CAD, ASA, Plavix, beta-skye Hypertension, Lopressor VANDANA GERD with hx of esophageal stenosis requiring frequent dilation History of brain aneurysm, subarachnoid hemorrhage, hemiplegia, ischemic stroke, 2010 Breast CA, right sided ductal carcinoma, mastectomy 2019, remission Osteoporosis, Depression History Summary: Ms. Coronado is a 65 y/o female who was admitted through the ED due to an increase in shortness of breath. Patient does have longstanding chronic/terminal respiratory failure with an extensive history of pulmonary cancers lobectomy without a good prognosis. He has acute on chronic pulmonary secretions and due to her physical disability/weakened state has very little ability to help mobilize her secretions along with concomittent Dsphagia in which past video study demostrated penetration quite deeply with mixed consistencies and at one time was undergoing speech therapy. ED course: White count 20,000, D-dimer 780, initial lactate 2.6, repeated 1.2, BNP 249 VS, heart rate 110, RR 27, SaO2 99% 4 L Subjective, patient felt fine Chest CT, increase parenchymal opacification/mass, see report for details BC, UA culture Rocephin ordered in ED x1 __ Hospital course 06/10/2021; white count and neutrophilia improving, was given Rocephin along with azithromycin last night x1 in ED. although baseline tachycardia heart rate now in 130s. No fever, slept well, blood cultures pending, no diaphoresis good MAP, has sputum however appears chronic. No altered mental status 06/11/2021, inflammatory markers cont to improve wherever we were not able to induce sputum for adequate sampling. Blood cultures no growth to date, her respiratory status has improved however she does have significant rhonchus with tracheal debris with poor respiratory secretion clearance as a sequela of her chronic aspiratory failure/pulmonary cancer. Procalcitonin pending. She did have sinus tachycardia at 1.1 30s however now at her baseline however not optimal. She is well-hydrated. Respiratory consultation provided bedside analysis of patient's ability to adequately form self demonstration of inhalers. Medication changes/adjustments upon discharge --Ceftriaxone, 1 g daily 2000 x 4 days next dose tonight --Azithromycin 250 mg p.o. daily (at this time indefinite) --Continue on all other medications previously directed by pulmonology Disposition --I feel the patient very near her baseline therefore will transfer back to her residence at [facility] long-term care however she can continue with antibiotics. Long discussion with Zulma carreon's POA Bee discussing prognosis, pulmonary's recommendations, diagnosis, recommend hospice palliative care however also explained to her that I will consult with her oncologist regarding family's wishes. She will be in contact with me regarding her decision whether or not ongoing aggressive treatments. I recommend changing over CODE STATUS to DNR and palliative care - Mortality Measure Prognosis:: Poor - General Info Functional Status: Reports: Pain Controlled, Tolerating Diet, Urinating, Incentive Spirometry. Denies: Ambulating, New Symptoms - Review of Systems General: Denies: Fever, Weakness, Fatigue, Malaise, Chills HEENT: Reports: No Symptoms Pulmonary: Reports: Cough, Sputum. Denies: Wheezing Cardiovascular: Denies: Orthopnea, PND, Edema Gastrointestinal: Reports: No Symptoms Skin: Reports: No Symptoms Neurological: Reports: Pre-Existing Deficit Psychiatric: Reports: Mood Lability - Patient Data Vitals - Most Recent: Last Vital Signs Temp 97.8 F 06/11/21 06:46 Pulse 86 06/11/21 08:21 Resp 20 06/11/21 06:46 BP 132/71 06/11/21 08:21 Pulse Ox 94 L 06/11/21 07:52 Weight - Most Recent: 164 lb 9 oz I&O - Last 24 hours: Intake & Output 06/10/21 06/11/21 06/11/21 22:59 06:59 14:59 Intake Total 250 0 Balance 250 0 BARRETT Results - Last 24 hrs: Microbiology 06/09/21 20:40 Aerobic Blood Culture - Preliminary Blood - Venous NO GROWTH AFTER 1 DAY Anaerobic Blood Culture - Preliminary NO GROWTH AFTER 1 DAY 06/09/21 20:30 Aerobic Blood Culture - Preliminary Blood - Venous - Lab Draw NO GROWTH AFTER 1 DAY Anaerobic Blood Culture - Preliminary NO GROWTH AFTER 1 DAY Med Orders - Current: Current Medications Acetaminophen (Acetaminophen 325 Mg Tab) 650 mg PO Q4H PRN PRN Reason: Pain Last Admin: 06/11/21 04:02 Dose: 650 mg Documented by: Acetaminophen (Acetaminophen 325 Mg Tab) 650 mg PO TID CAITLIN Last Admin: 06/11/21 08:30 Dose: 650 mg Documented by: Albuterol (Albuterol 0.083% 2.5 Mg/3 Ml Neb Soln) 2.5 mg INH 0000,0600,1200,1800 PRN PRN Reason: Shortness of Breath Last Admin: 06/11/21 03:47 Dose: 2.5 mg Documented by: Alprazolam (Alprazolam 0.25 Mg Tab Ptom) 0.25 mg PO DAILY@1200 REPLACED BY [facility] Last Admin: 06/10/21 14:02 Dose: 0.25 mg Documented by: Artificial Tears (Carboxymethylcellulose Sodium 0.5% Ophth Soln 15 Ml Bottle) 0 ml EYEBOTH QID PRN PRN Reason: Dry Eyes Ascorbic Acid (Ascorbic Acid 500 Mg Tab Ptom) 500 mg PO TID REPLACED BY [facility] Last Admin: 06/11/21 08:22 Dose: 500 mg Documented by: Aspirin (Aspirin 81 Mg Tab.Chew) 81 mg PO DAILY REPLACED BY [facility] Last Admin: 06/11/21 08:35 Dose: 81 mg Documented by: Budesonide (Budesonide 0.5 Mg/2 Ml Neb Susp Ptom) 0.5 mg NEB BIDRT REPLACED BY [facility] Last Admin: 06/11/21 07:52 Dose: 0.5 mg Documented by: Ceftriaxone Sodium (Ceftriaxone 1 Gm Vial) 1 gm IVPUSH Q24H REPLACED BY [facility] Last Admin: 06/10/21 22:16 Dose: 1 gm Documented by: Cholecalciferol (Cholecalciferol (Vitamin D3) 25 Mcg Tab) 50 mcg PO DAILY REPLACED BY [facility] Last Admin: 06/11/21 08:35 Dose: 50 mcg Documented by: Clopidogrel Bisulfate (Clopidogrel 75 Mg Tab Ptom) 75 mg PO DAILY REPLACED BY [facility] Last Admin: 06/11/21 08:26 Dose: 75 mg Documented by: Folic Acid (Folic Acid 1 Mg Tab Ptom) 1 mg PO DAILY REPLACED BY [facility] Last Admin: 06/11/21 08:23 Dose: 1 mg Documented by: Formoterol Fumarate (Perforomist (Formoterol) 20 Mcg/2 Ml Neb Ptom) 20 mcg INH BID@0800,1800 REPLACED BY [facility] Last Admin: 06/11/21 07:05 Dose: 20 mcg Documented by: Furosemide (Furosemide 40 Mg Tab Ptom) 40 mg PO DAILY REPLACED BY [facility] Last Admin: 06/11/21 08:26 Dose: 40 mg Documented by: Furosemide (Furosemide 40 Mg Tab Ptom) 20 mg PO 1200 PRN PRN Reason: weight gain Guaifenesin (Guaifenesin 100 Mg/5 Ml Soln 5 Ml Ud Cup) 100 mg PO Q4HR PRN PRN Reason: Cough Heparin Sodium (Porcine) (Heparin Sodium 100 Units/Ml 5 Ml Syringe) 500 units IVPUSH ASDIRECTED PRN PRN Reason: PORT Metoprolol Succinate (Metoprolol Succinate 25 Mg Tab.Er Ptom) 25 mg PO DAILY REPLACED BY [facility] Last Admin: 06/11/21 08:21 Dose: 25 mg Documented by: Ferrous Gluconate 324 Mg Tablet Ptom 324 mg PO BID REPLACED BY [facility] Last Admin: 06/11/21 08:23 Dose: 324 mg Documented by: Fluoxetine 20 Mg/5 (Ml Solution Ptom) 60 mg PO DAILY REPLACED BY [facility] Last Admin: 06/11/21 08:32 Dose: 60 mg Documented by: Letrozole 2.5 Mg (Tablet Ptom) 2.5 mg PO BEDTIME REPLACED BY [facility] Last Admin: 06/10/21 22:05 Dose: 2.5 mg Documented by: Olanzapine 2.5 Mg (Tablet Ptom) 2.5 mg PO DAILY@2100 REPLACED BY [facility] Last Admin: 06/10/21 22:05 Dose: 2.5 mg Documented by: Pantoprazole ( Protonix) 40mg Dr Tab Ptom 40 mg PO DAILY REPLACED BY [facility] Last Admin: 06/11/21 08:23 Dose: 40 mg Documented by: Sennosides 8.6 Mg (Tab Ptom) 8.6 mg PO BID@0800,1600 REPLACED BY [facility] Last Admin: 06/11/21 08:19 Dose: 8.6 mg Documented by: Trazodone Hcl 50 Mg (Tablet Ptom) 75 mg PO BEDTIME REPLACED BY [facility] Last Admin: 06/10/21 22:06 Dose: 75 mg Documented by: Glycopyrrolate 1 Mg (Tablet Ptom) 2 mg PO DAILY@2000 REPLACED BY [facility] Effer-K (Potassium Bicarbonate/Cit Ac) 10 Meq Tab Ptom 10 meq PO DAILY@1200 REPLACED BY [facility] Prednisone (Prednisone 20 Mg Tab) 20 mg PO DAILY REPLACED BY [facility] Stop: 06/13/21 09:01 Last Admin: 06/11/21 08:35 Dose: 20 mg Documented by: Sodium Chloride (Sodium Chloride 0.9% 10 Ml Syringe) 10 ml IV ASDIRECTED PRN PRN Reason: PORT Discontinued Medications Albuterol (Albuterol 0.083% 2.5 Mg/3 Ml Neb Soln) 2.5 mg INH 0000,0600,1200,1800 REPLACED BY [facility] Last Admin: 06/10/21 18:06 Dose: Not Given Documented by: Ceftriaxone Sodium (Ceftriaxone 1 Gm Vial) 1 gm IVPUSH ONETIME ONE Stop: 06/09/21 21:04 Last Admin: 06/09/21 21:11 Dose: 1 gm Documented by: Ceftriaxone Sodium (Ceftriaxone 1 Gm Vial) Confirm Administered Dose 1 gm .ROUTE .STK-MED ONE Stop: 06/09/21 21:06 Last Admin: 06/09/21 21:11 Dose: Not Given Documented by: Azithromycin 500 mg/ Sodium (Chloride) 250 mls @ 250 mls/hr IV ONETIME ONE Stop: 06/09/21 22:00 Last Admin: 06/09/21 21:31 Dose: 250 mls/hr Documented by: Sterile Water (Sterile Water For Injection) Confirm Administered Dose 20 mls @ as directed .ROUTE .STK-MED ONE Stop: 06/09/21 21:06 Last Admin: 06/09/21 21:12 Dose: Not Given Documented by: Sodium Chloride (Normal Saline) Confirm Administered Dose 100 mls @ as directed .ROUTE .STK-MED ONE Stop: 06/09/21 21:30 Last Admin: 06/09/21 21:32 Dose: 100 mls/hr Documented by: Glycopyrrolate 1 Mg (Tablet Ptom) 2 mg PO DAILY REPLACED BY [facility] Last Admin: 06/10/21 14:03 Dose: 2 mg Documented by: Effer-K (Potassium Bicarbonate/Cit Ac) 10 Meq Tab Ptom 10 meq PO DAILY REPLACED BY [facility] Last Admin: 06/10/21 14:03 Dose: 10 meq Documented by: Sodium Chloride (Sodium Chloride 7% 4 Ml Neb Soln) Confirm Administered Dose 4 ml .ROUTE .STK-MED ONE Stop: 06/10/21 11:35 Last Admin: 06/10/21 11:40 Dose: 4 ml Documented by: - Exam Quality Assessment: Reports: Supplemental Oxygen General: Reports: Alert, Oriented, Cooperative, No Acute Distress Lungs: Reports: Rhonchi Cardiovascular: Reports: Regular Rhythm, Tachycardia GI/Abdominal Exam: Normal Bowel Sounds, Soft, No Distention. No: Guarding, Rigid, Mass (Female) Exam: Deferred Extremities: No Pedal Edema Skin: Reports: Warm, Dry, Intact Psy/Mental Status: Reports: Alert, Normal Affect, Normal Mood
[2021-06-11] MEDS ORDERED: PANTOPRAZOLE 40 MG PO SCH (09:00)
[2021-06-11] MEDS ORDERED: Cholecalciferol (Vitamin D3) 25 MCG Tab PO SCH (09:00)
[2021-06-11] MEDS ORDERED: FOLIC ACID 1 MG PO SCH (09:00)
[2021-06-11] MEDS ORDERED: predniSONE 20 MG Tab PO SCH (09:00)
[2021-06-11] MEDS ORDERED: Aspirin 81 MG Tab.Chew PO SCH (09:00)
[2021-06-11 09:17] LABS: ANION GAP 8.2 mmol/L (5-15); CHLORIDE,CL 101 mmol/L (98-107); SODIUM,NA 146 mmol/L (136-145)
[2021-06-11] MEDS ORDERED: EFFER K PO SCH (12:00)
[2021-06-11] MEDS ORDERED: GLYCOPYRROLATE 1 MG PO SCH (20:00)
== END 2021-06-11 11:01 ==
LOC: KA.ED 18:32 → KA.MS 22:06 → UNDOADMOB 23:45 → KA.MS 23:45
PROVIDERS: ADMIT Family Medicine; ATTEND Family Medicine
DX: J96.11 Chronic respiratory failure with hypoxia (principal); C34.11 Malignant neoplasm of upper lobe, right bronchus or lung; I11.0 Hypertensive heart disease with heart failure; I50.22 Chronic systolic (congestive) heart failure; I25.10 Atherosclerotic heart disease of native coronary artery without angina pectoris; D50.9 Iron deficiency anemia, unspecified; K21.9 Gastro-esophageal reflux disease without esophagitis; K22.2 Esophageal obstruction; M81.0 Age-related osteoporosis without current pathological fracture; C50.911 Malignant neoplasm of unspecified site of right female breast; F32.9 Major depressive disorder, single episode, unspecified; J44.9 Chronic obstructive pulmonary disease, unspecified; D72.825 Bandemia; R79.89 Other specified abnormal findings of blood chemistry; Z20.822 Contact with and (suspected) exposure to COVID-19; Z86.73 Personal history of transient ischemic attack (TIA), and cerebral infarction without residual deficits; Z98.890 Other specified postprocedural states; Z51.5 Encounter for palliative care
CPT/HCPCS: 36415; 71045; 71250; 80053; 81001; 83605; 83880; 84145; 84484; 85025; 85379; 87040; 87070; 87086; 87088; 87186; 87205; 93005; 94640; 96365; 96375; 96376; 99284; 99285-25; A9270-GY; G0378; J0456; J0696; J1642; J7050; J7512; J7606; J7613-GY; U0002